=== PATIENT | male | born 1940 | race Caucasian/White ===

== ENCOUNTER 2023-08-16 07:27 | Inpatient (IN) | payer MEDICARE, SELFPAY ==
[2023-08-16] VITALS (55 sets, daily range): BP systolic 72–149; BP diastolic 40–108; PULSE 62–160; RESP 19–42; TEMP 36.4–37.2; O2SAT 78–99; BMI 37.7
--- NOTE | ~2023-08-16 | XR_ITS ---
Portable chest x-ray Comparison: 08/16/2023 Clinical History: Intubation Findings: Endotracheal tube is present, tip just above the cesia. NG tube in satisfactory position. Probable small right pleural effusion with mild bibasilar pulmonary edema/atelectasis. Cardiomedias tinal silhouette is stable. Bones and soft tissues are unremarkable. Impression: Support tubes, as above. Consider mild retraction of ET tube. Small right pleural effusion with mild bibasilar pulmonary edema/atelectasis. Reviewed, dictated and finalized at location . NESS SUPPORT ADMINISTRATOR Impression: Support tubes, as above. Consider mild retraction of ET tube. Small right pleural effusion with mild bibasilar pulmonary edema/atelectasis.
--- NOTE | ~2023-08-16 | XR_ITS ---
EXAMINATION: XR chest ET placement, XR abdomen gastric tube insert DATE: 08/16/2023 19:18 INDICATION: Endotracheal tube placement and nasogastric tube placement. TECHNIQUE: 1. Frontal view of the chest was obtained. 2. AP view of the abdomen was obtained. COMPARISON: 08/16/2023 FINDINGS: Endotracheal tube tip 5.2 cm above the cesia. Nasogastric tube tip in the stomach with proximal side -port just at the level of the gastroesophageal junction. Opacities in the bilateral lower lung zones, right greater than left which could represent atelectasi s and/or pneumonia . No pneumothorax or definitive pleural effusion. Cardiomegaly. No dilated loops g as-filled bowel in the visualized abdomen. Excreted contrast in the bilateral kidneys related to an e arlier contrast-enhanced CT. IMPRESSION: 1. Endotracheal tube tip 5.2 cm above the cesia. Could consider advancement by 3 cm. 2. Nasogastric tube tip in the stomach with proximal side-port at the level of the gastroesophageal j unction. Consider advancement by [address] the proximal side-port below level of the gastroesopha geal junction. 3. Opacities in bilateral lower lung zones with appearance in the right lower lung zone on prior CT m ost consistent with pneumonia and on the left more consistent with atelectasis. 4. Cardiomegaly. Reviewed, dictated and finalized at location A. OLOGY SPECIALIST IMPRESSION: 1. Endotracheal tube tip 5.2 cm above the cesia. Could consider advancement by 3 cm. 2. Nasogastric tube tip in the stomach with proximal side-port at the level of the gastroesophageal junction. Consider advancement by [address] the proxim al side-port below level of the gastroesophageal junction. 3. Opacities in bilateral lower lung zones with appearance in the right lower l rosa zone on prior CT most consistent with pneumonia and on the left more consis tent with atelectasis. 4. Cardiomegaly.
--- NOTE | ~2023-08-16 | CT_ITS ---
EXAMINATION: CT abdomen pelvis w con DATE: 08/16/2023 12:41 INDICATION: Lower abdominal pain TECHNIQUE: Computed tomography (CT) of the abdomen and pelvis was performed with 100 CC Omnipaque 350 intravenous contrast. Automated exposure control and iterative reconstruction technique were employe d. Exam dose: 1510.00 mGy-cm total exam DLP. COMPARISON: None. FINDINGS: There is severe patchy right lower lobe consolidation. There is moderate discoid atelectasi s and/or scarring in the left lung base, left lower lobe. Cardiomegaly, coronary artery calcifications. No pericardial or pleural effusion. 2.7 cm concentrically calcified gallstone. There is mild thickening of the gallbladder wall which lenore ht be due to acute or chronic cholecystitis. No pericholecystic fluid or fat stranding is noted. No b ile duct or pancreatic duct dilatation is detected. The liver, spleen, pancreas, and adrenal glands are unremarkable. 3.5 cm exophytic cyst of the right kidney Several pinpoint nonobstructing right renal calculi. Up to approximately 6 nonobstructing left renal calculi are suggested, largest measuring 3-4 mm. There is a Schaffer catheter within the urinary bladder which is largely evacuated. There is approximate ly 4.8 x 5.7 mm calculus within the urinary bladder at the right aspect of the Schaffer catheter balloon . Multiple prostate calcifications, prostate enlargement. There is atherosclerotic calcification but normal caliber of the abdominal aorta. No intraperitoneal or retroperitoneal or pelvic mass lesion or adenopathy or ascites is detected. Mild colonic diverticulosis; no CT evidence of diverticulitis. No evidence of appendicitis. No bowel obstruction, bowel wall thickening, pneumatosis or intraperitoneal free air. Approximately 1.4 x 2.4 cm fat-containing umbilical hernia. Small fat-containing left inguinal hernia. Prominent thoracic and lumbar spondylolysis. Moderately prominent bilateral hip osteoarthritis. No suspicious osteolytic or osteoblastic lesions are noted. IMPRESSION: Prominent right lower lobe consolidation consistent with pneumonia Cardiomegaly Cholelithiasis Mild gallbladder wall thickening which may be due to chronic or acute cholecystitis; clinical correla tion advised. Consider gallbladder ultrasound if clinically appropriate 3.5 cm exophytic right renal cyst Bilateral nonobstructive nephrolithiasis Approximately 4.8 x 5.7 mm calculus within the urinary bladder Bladder is not optimally evaluated due to evacuation by Schaffer catheter Prostate enlargement and calcifications Mild colonic diverticulosis; no diverticulitis No evidence of appendicitis Reviewed, dictated and finalized at Location A. Reviewed, dictated and finalized at location B. WAY MAINTENANCE SUPERVISOR IMPRESSION: Prominent right lower lobe consolidation consistent with pneumonia Cardiomegaly Cholelithiasis Mild gallbladder wall thickening which may be due to chronic or acute cholecyst itis; clinical correlation advised. Consider gallbladder ultrasound if clinical ly appropriate 3.5 cm exophytic right renal cyst Bilateral nonobstructive nephrolithiasis Approximately 4.8 x 5.7 mm calculus within the urinary bladder Bladder is not optimally evaluated due to evacuation by Schaffer catheter Prostate enlargement and calcifications Mild colonic diverticulosis; no diverticulitis No evidence of appendicitis
--- NOTE | ~2023-08-16 | XR_ITS ---
Portable chest x-ray Comparison: None Clinical History: Cough Findings: Lungs are clear, without focal consolidation or pleural effusion. Cardiomediastinal silho uette is prominent. Bones and soft tissues are unremarkable. Impression: Clear lungs. Cardiomegaly. Reviewed, dictated and finalized at location . CTION MOLDING ENGINEER Impression: Clear lungs. Cardiomegaly.
--- NOTE | ~2023-08-16 | XR_ITS ---
Portable chest x-ray Comparison: 08/17/2023 Clinical History: Respiratory failure Findings: Endotracheal tube and NG tube are in satisfactory positions. Small small moderate right pl eural effusion is present. Left lung essentially clear. Cardiomediastinal silhouette is stable. Bone s and soft tissues are unremarkable. Impression: Small to small moderate right pleural effusion. Support tubes, as above. Reviewed, dictated and finalized at location M. RITY AGENT Impression: Small to small moderate right pleural effusion. Support tubes, as above.
--- NOTE | ~2023-08-16 | XR_ITS ---
Portable chest x-ray Comparison: 08/18/2023 Clinical History: Respiratory failure Findings: Endotracheal tube and NG tube are in satisfactory positions. [id number] right pleur al effusion present. Probable minimal pulmonary edema. Cardiomediastinal silhouette is stable. Bones and soft tissues are unremarkable. Impression: Support tubes, as above. [id number] right pleural effusion and minimal pulmonary edema. Reviewed, dictated and finalized at location . CTOR OF DATABASE MARKETING Impression: Support tubes, as above. [id number] right pleural effusion and minimal pulmonary edema.
--- NOTE | ~2023-08-16 | US_ITS ---
EXAMINATION: US abdomen limited DATE: 08/17/2023 15:54 INDICATION: Gallbladder wall thickening on CT from one day prior. TECHNIQUE: Multiple grayscale and Doppler ultrasound images of the abdomen were obtained. COMPARISON: CT dated 08/16/2023 FINDINGS: Visualized portion of the pancreatic body is normal. The pancreatic head and tail are obscured. Visua lized proximal aorta and inferior vena cava are normal. Liver has normal echogenicity and contour, wi th a smooth surface. No liver lesion identified. No intrahepatic biliary duct dilation suspected. Por martina venous flow was seen in the hepatopetal, normal direction and has normal Doppler waveform. There is a large shadowing gallstone within the otherwise normal-appearing gallbladder with no evident gall bladder wall thickening. Sonographic Aguirre sign was unable to be assessed due to patient mental stat us. The common bile duct measures 5 mm, which is normal. The right kidney measures 12.0 x 5.7 x 4.5 c m with normal contour and echogenicity. There is mild cortical thinning. 4.3 similar exophytic cyst a rising from the mid right kidney. IMPRESSION: 1. Cholelithiasis within an otherwise normal-appearing gallbladder. Reviewed, dictated and finalized at location A. GER GROCERY
--- NOTE | 2023-08-16 07:54 | ECG_ITS ---
Measurements Intervals [place] Rate: 152 P: NE: 0 QRS: -29 QRSD: 113 T: 93 QT: 286 QTc: 456 Interpretive Statements ATRIAL FIBRILLATION WITH RAPID VENTRICULAR RESPONSE WITH ABERRANT CONDUCTION OR VENTRICULAR PREMATURE COMPLEXES BORDERLINE LEFT AXIS DEVIATION [QRS AXIS < -20] MODERATE INTRAVENTRICULAR CONDUCTION DELAY [110+ ms QRS DURATION] NONSPECIFIC ST & T-WAVE ABNORMALITY ABNORMAL ECG NO PREVIOUS ECG AVAILABLE FOR COMPARISON Electronically Signed On 08-16-2023 8:45:23 NEWS OPERATIONS MANAGER by Kelton Ross M.D.
[2023-08-16] MEDS: dilTIAZem HCl INJ 25 MG/5 ML VIAL 10 MG IV PUSH ×2 (08:18→09:29)
[2023-08-16] MEDS: MORPHINE SULFATE (*CRX) 4 MG/ML INJ IV PUSH (08:20)
[2023-08-16] MEDS: SODIUM CHLORIDE 0.9% IV 1,000 ML 999 ML IV CONT (08:21)
[2023-08-16 08:49] LABS: Basophils Absolute Auto 0.1 K/mm3 (0.0-0.1); Basophils Percent Auto 0.6 % (0.2-1.2); Eosinophils Absolute Auto 1.7 K/mm3 (0-0.3); Eosinophils Percent Auto 10.2 % (0-4.4); Hematocrit 58.5 % (42.0-52.0); Hemoglobin 18.9 g/dL (14.0-18.0); Immature Granulocyte Absolute 0.06 K/mm3 (0.00-0.031); Immature Granulocyte Percent A 0.4 % (0-0.5); Immature Platelet Fraction Pct 7.2 % (0.9-11.2); Lymphocytes Absolute Auto 0.44 K/mm3 (0.9-3.2); Lymphocytes Percent Auto 2.7 % (18.3-44.2); Mean Corpuscular HGB Conc 32.3 g/dl (32-36); Mean Corpuscular Hemoglobin 31.6 pg (26-34); Mean Corpuscular Volume 97.7 fl (80-100); Mean Platelet Volume 10.5 fl (7.4-10.4); Monocytes Absolute Auto 0.5 K/mm3 (0.1-0.6); Monocytes Percent Auto 3.1 % (2.6-8.5); Neutrophils Absolute Auto 13.6 K/mm3 (1.3-6.7); Platelet Count Result 128 k/mm3 (150-375); Red Blood Count 5.99 M/mm3 (4.6-6.20); White Blood Count 16.4 K/mm3 (4.5-10.0)
[2023-08-16] MEDS: dilTIAZem 100 MG/100 ML 100 MG/100 ML BAG IV CONT (09:01)
--- NOTE | 2023-08-16 09:07 | PC.NURSE ---
Cardizem drip initiated. Pt resting wtih shallow, tachy resp. states a liliya ago pt in hospital in ICU on ventilator for Urosepsis. Since that time pt has required a parson.
[2023-08-16 09:13] LABS: Lactic Acid Reflex 4.9 mmol/L (0.7-2.0)
[2023-08-16 09:22] LABS: INR 1.9; Partial Thromboplastin Time 31.6 SECONDS (22.3-36.8); Prothrombin Time 22.5 Seconds (11.1-14.7)
[2023-08-16 09:42] LABS: Influenza A QL RT-PCR Negative (Negative); Influenza B QL RT-PCR Negative (Negative); RSV RNA, RT-PCR Negative (Negative); SARS-CoV-2 RNA PCR Negative (Negative)
--- NOTE | 2023-08-16 10:27 | PC.NURSE ---
late entry- 0900- Pt lung sounds course in all reyez. Loose congested cough.
[2023-08-16 10:50] LABS: Bacteria Urine 4+ /hpf; Need Manual Microscopic Reviewed; RBC Urine >100 /hpf (0-2); Squamous Epithelial Cell Urine None seen /hpf (Few); WBC Urine >100 /hpf
[2023-08-16 10:51] LABS: Appearance Urine Turbid (Clear); Bilirubin Urine 1+ (Negative); Blood Urine 3+ (Negative); Color Urine Orange (Yellow); Glucose Urine UA 3+ mg/dL (Negative); Ketones Urine Trace mg/dL (Negative); Leukocyte Esterase Ur 2+ LEU/UL (Negative); Nitrate Urine Negative (Negative); Protein Urine 1+ mg/dL (Negative); Specific Grav Ur 1.018 (1.001-1.035)
[2023-08-16 10:53] LABS: Add Urine Microscopic? YES
--- NOTE | 2023-08-16 10:57 | PC.NURSE ---
CMP drawn sent to lab. Pt more alert, conversing short sentences.
[2023-08-16 11:35] LABS: Alanine Aminotransferase 43 U/L (6-50); Albumin Level 3.1 g/dL (3.5-5.1); Alkaline Phosphatase 50 U/L (38-126); Anion Gap 13 mmol/L (8-16); Aspartate Amino Transferase 27 U/L (17-59); Bilirubin,Total 1.6 mg/dL (0.2-1.3); Blood Urea Nitrogen 16 mg/dL (9-20); CRP 3.4 mg/dL (<1.0); Calcium 8.5 mg/dL (8.4-10.2); Carbon Dioxide 19 mmol/L (22-30); Chloride 108 mmol/L (98-107); Estimated CRCL calculation 59 ml/min; Estimated Glomerular Filt Rate > 60; Glucose 130 mg/dL (65-110); Potassium 3.9 mmol/L (3.4-5.0); Sodium 140 mmol/L (137-145)
[2023-08-16 11:44] LABS: Reflex Lactic Acid Yes or No Add Lactic
--- NOTE | 2023-08-16 11:45 | PC.NURSE ---
Pt remains congested. Non productive loose cough with audible wheezes. Dr. Fletcher informed
--- NOTE | 2023-08-16 12:37 | PC.NURSE ---
RN & bottling line operator unable to obtain lab orders. Phlebotomy called for assistance
--- NOTE | 2023-08-16 12:43 | PC.NURSE ---
Pt repositioned for comfort. Pt alert able to converse, able to request needs. remains at bedside
--- NOTE | 2023-08-16 12:56 | PC.NURSE ---
Pts at nurses station stating she thinks he is having a reaction from CT scan. RN assessed pt lower extremities to be mottled from groin to feet. Dr. Fletcher informed.
--- NOTE | 2023-08-16 13:01 | ED.GENADULT ---
HPI - General Adult General Chief complaint: Urogenital-Male Stated complaint: not feeling well Time Seen by Provider: 08/16/23 07:38 History of Present Illness HPI narrative: Patient is an 82-year-old male who presents ER with abdominal pain and fatigue /confusion. reports patient awoke today was more confused than typical. He has been having abdominal pain for several days on the right side. Has chronic indwelling Schaffer catheter. Upon arrival patient tachycardic to the 180s. Here. The AFib with RVR. He can answer some simple yes no questions and is oriented times 2-3. Related Data Allergies Allergy/AdvReac Type Severity Reaction Status Date / Time No Known Allergies Allergy Verified 08/16/23 08:17 Review of Systems Review of Systems: ROS unobtainable: Yes unobtainable due to medical condition PMFSH Past Medical History Medical History (Updated 08/16/23 @ 19:36 by Dc Fletcher MD) Benign prostatic hyperplasia Chronic anticoagulation Chronic atrial fibrillation Chronic indwelling Schaffer catheter Chronic kidney disease Hypertension Kidney stones Obstructive sleep apnea Intolerant to CPAP. Type 2 diabetes mellitus Urinary retention Surgical History Surgical History (Updated 08/16/23 @ 17:55 by Dariela Sawyer PA-C) History of cystoscopy History of tonsillectomy Family History Family History (Updated 08/16/23 @ 17:56 by Dariela Sawyer PA-C) Mother Cancer Father Acute myocardial infarction Social History Social History (Updated 08/16/23 @ 17:56 by Dariela Sawyer PA-C) Social History: Surrogate medical decision maker: Taniya Goyalson, spouse. Code status: Modified code. Medications, vasopressors, and intubation okay. No CPR. Smoking status: Never smoker Alcohol intake: never Alcohol use details: Occasional glass of wine. Substance use: never Substance use type: does not use Additional living arrangements comments: Lives with spouse in [place]. He has 1 daughter. 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 Spiritual care concerns: No Exam Narrative: GENERAL: Chronically ill-appearing, morbidly obese, and in no acute distress. HEAD: Normocephalic, atraumatic. EYES: PERRL and EOMI. ENT: Mucous membranes moist. NECK: Supple. CHEST: mild basilar crackles right-sided. No respiratory distress. HEART: irregular regular rate and rhythm that is tachycardic. Normal peripheral pulses. ABDOMEN: Soft, Right lower quadrant tenderness with guarding, nondistended, normal active bowel sounds. EXTREMITIES: Normal range of motion. +2 edema. SKIN: Warm, dry, no rash. NEURO: Alert and oriented x2-3. PSYCH: Normal mood and affect. Course Course Emergency Course: patient has been aggressively resuscitated with fluid due to concerns for sepsis. Lung sounds worsening now has obvious pneumonia. It appears patient may have passed a kidney stone as there is now 1 in his bladder in urine appears infected. Broad-spectrum antibiotics ordered. Patient placed on BiPAP for comfort but is still tachypneic. After discussions with the hospitalist service and national account director patient will go to the ICU. reports patient would be okay with intubation but does not want to have chest compressions. Patient received diltiazem 20 mg IV as well as an IV drip of diltiazem to control heart rate. Vital Signs Vital signs: Vital Signs Temperature 98.8 F 08/16/23 07:35 Pulse Rate 149 H 08/16/23 07:35 Respiratory Rate 30 H 08/16/23 07:35 Blood Pressure 142/95 H 08/16/23 07:35 Pulse Oximetry 97 08/16/23 07:35 Oxygen Delivery Room Air 08/16/23 07:35 Temperature 97.9 F 08/16/23 15:20 Pulse Rate 124 H 08/16/23 19:27 Respiratory Rate 30 H 08/16/23 19:27 Blood Pressure 77/58 L 08/16/23 16:00 Pulse Oximetry 91 08/16/23 19:28 Oxygen Delivery Mechanical Ventilation 08/16/23 19:28 Oxygen Flow Rate 3 02
[2023-08-16] MEDS: VANCOMYCIN 1,250 MG/NS 250 ML 1,250 MG/250 ML BAG 166.67 MG IVPB ×2 (13:52→17:15)
[2023-08-16 14:14] LABS: Lactic Acid 2.3 mmol/L (0.7-2.0)
--- NOTE | 2023-08-16 14:37 | PC.NURSE ---
Attempted to call report. RN unavailable will return call
[2023-08-16 14:42] LABS: Alveolar/Arterial O2 Gradient 269.7 mmHg; Base Excess ABG -9.9 mEq/l (+/-2.0); Carboxyhemoglobin 0.9 % THb (0-2.0); Fractional Inspired Oxygen 50 %; HCO3 ABG 13.5 mEq/l (22.0-26.0); Methemoglobin ABG 0.4 %THb (0-1.5); Oxygen Content ABG 22.2 %vol (16.0-22.0); Oxygen Saturation ABG 89.5 % (95.0-100.0); Oxyhemoglobin 89.1 % THb (90.0-100.0); PCO2 ABG 25.3 mmHg (35.0-45.0); PO2 ABG 58.3 mmHg (80.0-100.0); PO2 FiO2 Ratio Arterial Blood 1.17 %; Reduced Hemoglobin 9.6 %THb (0-5.0); Total Hemoglobin 17.8 g/dL (12.0-18.0); pH ABG 7.345 (7.350-7.450)
[2023-08-16 14:43] LABS: Device NON-INVASIVE VENT; Modified Allen's Test Pass; Site Drawn LEFT RADIAL
[2023-08-16 14:44] LABS: Non-Invasive Expiratory Pressure 8 CMH2O; Non-Invasive Inspiratory Pressure 14 CMH2O; Non-Invasive Vent Rate 16 /MIN
--- NOTE | 2023-08-16 14:55 | PC.NURSE ---
Report called to [facility]. Unable to transfer pt due to maintenance working in room 8
[2023-08-16 15:16] LABS: MRSA (PCR) NOT DETECTED (NOT DETECTE)
--- NOTE | 2023-08-16 15:20 | ADMGEN ---
This patient, Guillaume Hernandez, was admitted to Intensive Care Unit-8. Patient/family oriented to hospital policies and general routines including ID bracelet, bed and alarms, visiting hours, pain management, procedures, bathroom and other care routines, personal items, smoking policy, room service/diet, and visiting hours. Information on how to activate the Rapid Response Team has been discussed. Patient/Family are encouraged to report perceived risks to care and to ask questions if they do not understand what they are told or what they should do.
--- NOTE | 2023-08-16 15:25 | PC.NURSE ---
Dariela FINCH at bedside to evaluate patient upon admission to ICU.
--- NOTE | 2023-08-16 15:32 | PM.IMHP ---
H&P: HPI History of Present Illness Date/Time: 08/16/23 15:35 Chief Complaint: Lethargic. Narrative: This is an 82-year-old male with chronic atrial fibrillation on anticoagulation, hypertension, type 2 diabetes mellitus, untreated sleep apnea, benign prostatic hyperplasia, and chronic urinary retention with indwelling Schaffer catheter who presented to the emergency department via EMS from home for evaluation of lethargy. The patient provides limited history as he is currently on BiPAP; his provides the majority of the following. He has never been seen before this facility and gets most of his care at [facility]. He seemed to be doing okay over the weekend however mentioned to his several times that he had a mild stomach ache after eating on several occasions. She also noticed that his urine seemed to be more cloudy and darker than usual but that cleared up yesterday. To her knowledge he has not had fever, epigastric pain, back pain, bloating, belching, vomiting, or diarrhea. She denies that he has issues with dysphagia and has no concerns for aspiration. No reports of sick contacts. This morning he woke her from sleep at about 04:30. He did not speak but indicated to her that he was not feeling well and he nodded yes when asked if he needed to go to the hospital. In the ED: He was afebrile on arrival. Blood pressure was 142/95. He was in rapid atrial fibrillation on arrival with rates in the 130s to 140s and he was started on a diltiazem drip. Rates improved for brief period of time however the drip was discontinued due to the development of hypotension. SpO2 was as low as 78% on room air and he was placed on BiPAP due to work of breathing. Labs were significant for WBC count of 16.4, hemoglobin 18.9, platelet 128, INR 1.9, BUN 16, creatinine 1.10, lactic acid 4.9, CRP 3.4. Urine was positive for 2+ leukocyte esterase, greater than 100 RBC and WBC, and 4+ bacteria. He tested negative for influenza, RSV, and COVID. Chest x-ray showed cardiomegaly with clear lungs. CT of the abdomen and pelvis showed right lower lobe pneumonia, mild gallbladder wall thickening, bilateral nonobstructive nephrolithiasis, approximately 4.8 x 5.7 mm calculus within the urinary bladder. He received 3 L crystalloids with improvement in his lactic acid level. Blood and urine cultures were obtained. He was admitted to the ICU for further treatment and evaluation. Blood pressures have continued to decline despite cessation of the diltiazem drip. Blood pressure was 77/58 on arrival to the ICU and a central line was inserted and he has been started on vasopressors. Heart rate is started to slow down and rates are now in the 90s. He remains tachypneic in the upper 20s to low 30s but seems to be tolerating BiPAP much better than he was when I 1st saw him. Initial ABG showed a pH of 7.345, pCO2 25.3, PO2 58.3, HC03 13.5, reduce hemoglobin 9.6. Patient indicates that he is feeling a little bit better at this time. He denies fever, chest pain, pleuritic pain, palpitations, epigastric pain, abdominal pain, and low back pain. A couple of hours after arrival to the ICU he at increasing oxygen requirements and was increasingly tachypneic. He indicated that he was tired and after discussing intubation, he and his gave verbal consent. As the evening progressed his atrial fibrillation became more difficult to control and he was started on an amiodarone drip. He has had increasing vasopressor requirements and is currently on norepinephrine, vasopressin, and phenylephrine. Review of Systems Review of Systems: Difficult to obtain given the fact that he is on BiPAP though can not confidently say all other systems were reviewed and are negative except as documented in HPI. [facility] Past Medical History Medical History Benign prostatic hyperplasia Chronic anticoagulation Chronic atrial fibrillation Chronic indwelling Schaffer catheter Ch
--- NOTE | 2023-08-16 15:48 | PC.NURSE ---
late entry: 1437 Attempted to call report to ICU nurse unavailable will return call.
--- NOTE | 2023-08-16 15:49 | PC.NURSE ---
late entry: 0823 [place] ICU called for report. Report given. Per [facility] room 8 is not available due to maintenance working on lift. Cathy Page RN & Dr. Fletcher informed.
--- NOTE | 2023-08-16 15:53 | PC.NURSE ---
[facility] ICU informed prior to transfer to ICU pts stated she wanted to place pt as DNR. ICU staff aware and states they will help her with the documentation
--- NOTE | 2023-08-16 17:05 | P.PCNBED_ITS ---
Procedures Central Line Placement Right Femoral: Central Line Date: 08/16/23 Central Line Time: 16:30 Consent: I have discussed with the patient and/or surrogate, the non-emergent placement of a central venous catheter, including its clinical necessity/indication and associated potential risks and complications. The patient and/or surrogate understand(s) and acknowledge(s) the need to proceed with central venous catheter insertion as an important element of the patient's clinical management. Time Out Performed: Yes Patient Position: supine Patient placed on monitor/pulse ox: Yes Provider Prep: mask, sterile gown, sterile gloves, Max. sterile barrier precautions, cap and hand hygiene with conventional soap/water or alcohol based hand rub Central line prep: 2% Chlorhexidine scrub Local anesthesia used: lidocaine 1% Amount of anesthesia used (ml): 5 Sterile US Technique with sterile gel/sterile probe covers: Yes Central line lumen inserted: triple Citizen Of [place]: 7 Length (cm): 20 Post Procedure: sutured in place, good blood return, all ports aspirated, flushed, capped, transparent dressing, antimicrobial product and aseptic technique maintained throughout procedure Post procedure x-ray: other (n/a with femoral placement) Complications: none
[2023-08-16] MEDS: cefTRIAXone 2 GM/NS 100 ML 2 GM/100 ML BAG IVPB (17:21)
[2023-08-16] MEDS: AZITHROMYCIN 500 MG/NS 250 ML 500 MG/250 ML BAG 250 MG IVPB (17:23)
[2023-08-16] MEDS: NOREPINEPHRINE 8 MG/D5W 250 ML 8 MG/250 ML BAG 9.38 MG IV CONT (17:38)
--- NOTE | 2023-08-16 18:32 | PC.NURSE ---
Dariela Sawyer called to the patient's bedside. Respirations are increased to 40's and patient has more labored breathing. Respiratory at bedside.
--- NOTE | 2023-08-16 18:54 | PC.NURSE ---
Decision made to intubate patient. Respiratory and ac gerling pa at bedside.
--- NOTE | 2023-08-16 19:15 | P.PCNBED_ITS ---
Procedures Intubation Intubation Date: 08/16/23 Intubation Time: 18:45 Consent: The patient and his both gave verbal consent. A pre-procedural Time-Out was completed immediately before starting the procedure and confirmed: Patient Identification, Site, Procedure, Patient Position and the Availability of Requisite Equipment: Yes Sedative: etomidate Mg given: 30 Paralytic: succinylcholine Mg given: 100 Laryngoscope: fiber optic video scope Assist device used: fiber optic device ET tube size: 8 Tube secured depth (cm): 26 Tube secured location: lips Tube placement confirmation: visualized tube passing through cords, equal breath sounds bilaterally, no breath sounds over epigastrium and confirmation by capnometry Patient tolerated procedure: well Intubation complications: none Additional comments: Patient was preoxygenated on 100% FiO2 on BiPAP. Blood pressure was stable above 105 systolic. Etomidate and succinylcholine were given in rapid sequence for RSI. 8.0 ET tube was passed quickly, atraumatically, and on 1st attempt using glide scope, size 4. The tube was visualized passing through the cords. There was positive CO2 colorimetric change with misting noted in the tube. Lung sounds were auscultated bilaterally and there were absent breath sounds over the epigastrium. Dark, dried blood was noted in the oropharynx. Bloody frothy with a few clots were suctioned in line. Overall the patient tolerated the procedure well. He remained hemodynamically stable throughout. Postprocedure chest x-ray showed the ET tube approximately 5 cm above the cesia. Vent settings and sedation orders were obtained from the utility operator yarn.
[2023-08-16 19:21] LABS: Glucose Point of Care 191 mg/dl (65-105)
[2023-08-16 19:26] LABS: Hematocrit 53.4 % (42.0-52.0); Hemoglobin 16.4 g/dL (14.0-18.0); Mean Corpuscular HGB Conc 30.7 g/dl (32-36); Mean Corpuscular Hemoglobin 31.7 pg (26-34); Mean Corpuscular Volume 103.1 fl (80-100); Platelet Count Result 167 k/mm3 (150-375); Red Blood Count 5.18 M/mm3 (4.6-6.20); Red Cell Distribution Width 14.5 % (11.5-14.5); White Blood Count 8.5 K/mm3 (4.5-10.0)
[2023-08-16] MEDS: SUCCINYLCHOLINE CHLORIDE 20 MG/ML 10 ML VIAL 100 MG IV PUSH (19:26)
[2023-08-16] MEDS: ETOMIDATE 20 MG/10 ML AMPUL IV PUSH (19:26)
[2023-08-16] MEDS: FENTANYL 2,500MCG/NS250ML(*CRX 2,500 MCG/250 ML BAG 10 MCG IV CONT (19:27)
[2023-08-16] MEDS: MIDAZOLAM 100MG/NS 100ML(*CRX) 100 MG/100 ML BAG IV CONT (19:29)
[2023-08-16 19:37] LABS: Anion Gap 17 mmol/L (8-16); Blood Urea Nitrogen 20 mg/dL (9-20); Calcium 7.9 mg/dL (8.4-10.2); Carbon Dioxide 13 mmol/L (22-30); Chloride 108 mmol/L (98-107); Estimated CRCL calculation 35 ml/min; Estimated Glomerular Filt Rate 34; Glucose 209 mg/dL (65-110); Magnesium 1.3 mg/dL (1.6-2.3); Potassium 4.2 mmol/L (3.4-5.0); Sodium 138 mmol/L (137-145)
[2023-08-16 19:41] LABS: Beta-Hydroxybutyrate/Acetoacetate 0.18 mmol/L (0.02-0.27); Lactic Acid Reflex 10.1 mmol/L (0.7-2.0)
[2023-08-16] MEDS: VASOPRESSIN INJ 100 UNITS in DEXTROSE 5% 95 ML IV CONT (19:49)
[2023-08-16 19:52] LABS: Troponin I 0.075 ng/mL (0.000-0.034)
[2023-08-16 20:09] LABS: Alveolar/Arterial O2 Gradient 598.6 mmHg; Base Excess ABG -15.2 mEq/l (+/-2.0); Carboxyhemoglobin 0.1 % THb (0-2.0); Fractional Inspired Oxygen 100 %; HCO3 ABG 14.2 mEq/l (22.0-26.0); Methemoglobin ABG 0.5 %THb (0-1.5); Oxyhemoglobin 88.5 % THb (90.0-100.0); PCO2 ABG 45.9 mmHg (35.0-45.0); PO2 ABG 68.5 mmHg (80.0-100.0); PO2 FiO2 Ratio Arterial Blood 0.69 %; Reduced Hemoglobin 10.9 %THb (0-5.0); Total Hemoglobin 17.7 g/dL (12.0-18.0)
[2023-08-16 20:09] LABS: Procalcitonin 27.1 ng/mL
[2023-08-16 20:12] LABS: Oxygen Saturation ABG 86.8 % (95.0-100.0); pH ABG 7.108 (7.350-7.450)
[2023-08-16 20:13] LABS: Arterial Blood Gas PEEP 8 cmH2O; Arterial Blood Gas Tidal Volume 450 ml; Arterial Blood Gas Vent Mode CMV; Arterial Blood Gas Ventilator rate 20 /MIN; Device VENTILATOR; Modified Allen's Test Pass; Site Drawn RIGHT RADIAL
[2023-08-16] MEDS: ALBUMIN HUMAN 25% 25 GM/100 ML 100 ML IVPB (20:27)
[2023-08-16] MEDS: SODIUM BICARBONATE 8.4% 50 MEQ/50 ML SYRINGE 100 MEQ IV PUSH (20:27)
[2023-08-16] MEDS: AMIODARONE 150 MG/D5W 100 ML 150 MG/100 ML BAG 600 MG IV CONT (20:30)
[2023-08-16] MEDS: AMIODARONE 360 MG/D5W 200 ML 360 MG/200 ML BAG 33.33 MG IV CONT (20:31)
[2023-08-16] MEDS: LACTATED RINGERS 1,000 ML 999 ML IV CONT (20:35)
[2023-08-16] MEDS: CEFEPIME 2 GM/NS 50 ML 2 GM/50 ML BAG IVPB (20:45)
[2023-08-16 20:52] LABS: Free T4 Free Thyroxine Reflex 1.47 ng/dL (0.78-2.19)
[2023-08-16] MEDS: MAGNESIUM SULF 2 GM/WATER 50ML 2 GM/50 ML BAG IVPB (20:53)
[2023-08-16] MEDS: SODIUM BICARBONATE 8.4% 150 MEQ in WATER, STERILE FOR INJECTION 950 ML 100 MEQ IV CONT (21:07)
[2023-08-16 21:36] LABS: Hemoglobin A1C 5.6 % (<5.7)
[2023-08-16 21:37] LABS: Total Triiodothyronine (T3) 0.42 NG/ML (0.97-1.69)
[2023-08-16] MEDS: metroNIDAZOLE 500 MG/ISO 100ML 500 MG/100 ML BAG 100 MG IVPB (21:37)
[2023-08-16] MEDS: CENTRAL LINE FLUSH 10 ML IV PUSH (21:38)
[2023-08-16] MEDS: MINERAL OIL/WHITE PETROLATUM OINTMENT 1 APPLIC EACH EYE (21:38)
[2023-08-16 23:08] LABS: NT Pro B Type Natriuretic Pept 14500 pg/mL (19.9-100)
[2023-08-16] MEDS: NOREPINEPHRINE 8 MG/D5W 250 ML 8 MG/250 ML BAG 56.25 MG IV CONT (23:08)
[2023-08-16] MEDS: EPINEPHrine INJ 4 MG in DEXTROSE 5% IN WATER 250 ML 3.81 MG IV CONT (23:13)
[2023-08-17] VITALS (105 sets, daily range): BP systolic 56–248; BP diastolic 28–231; PULSE 77–134; RESP 2–30; TEMP 36.5–39.5; O2SAT 90–100
--- NOTE | 2023-08-17 | ECHO_ITS ---
Patient Info Name: Guillaume Hernandez Age: 82 years : 1940 Gender: Male Ht: 69 in Wt: 253 lbs BSA: 2.41 m2 HR: 103 bpm BP: 100 / 70 mmHg Heart Rhythm: Atrial Fibrillation, Tachycardia Technical Quality: Poor Exam Date: 08/17/2023 11:21 AM Exam Location: Echo Lab Patient Status: Inpatient Admit Date: 08/16/2023 Staff Ordering Physician: Marcus Ponce MD Manager Environmental Health: Krupa Edouard RDCS Attending Provider: Elton Keys MD Exam Type: CA echo dop color flow w con Study Info Indications - shock Complete two-dimensional, color flow and Doppler transthoracic echocardiogram is performed with contrast to opacify the left ventricle and to improve the deliniation of the left ventricle endocardial borders. Contrast/Agitated Saline Contrast/Ag. Saline: Definity Amount: 4.00 ml Administered By: Krupa Edouard RDCS Existing IV Access: Yes IV Access Condition: patent with no signs of infiltration Summary 1. Technically difficult study with limited views. 2. Left ventricular chamber dimension is moderately enlarged. 3. Left ventricular systolic function is severely reduced, estimated at <15%. 4. There is mild tricuspid valve regurgitation. 5. Dilated inferior vena cava with >50% collapse upon inspiration consistent with elevated right atrial pressure, 15 mmHg. 6. There is small pericardial effusion. Left Ventricle Left ventricular chamber dimension is moderately enlarged. Left ventricular systolic function is severely reduced, estimated at <15%. There is no increased left ventricular wall thickness. Right Ventricle Right ventricular chamber dimension is not well visualized. Left Atria Left atrial chamber dimension is normal. Right Atria Right atrial chamber dimension is not well visualized. Aortic Valve The aortic valve is not well visualized. There is no aortic valve regurgitation. Pulmonic Valve The pulmonic valve is not well visualized. Mitral Valve There is no mitral valve regurgitation. Tricuspid Valve There is mild tricuspid valve regurgitation. Pericardium/Pleural There is small pericardial effusion. Inferior Vena Cava Dilated inferior vena cava with >50% collapse upon inspiration consistent with elevated right atrial pressure, 15 mmHg. Aorta The aortic root size at the sinus of Valsalva is normal. Left Ventricular Outflow Tract Name Value Normal LVOT 2D LVOT Diameter 2.04 cm LVOT Doppler LVOT Peak Gradient 0 mmHg LVOT Mean Gradient 0 mmHg LVOT VTI 3.04 cm LVOT VTI/AV VTI Ratio 0.12 LVOT Stroke Volume 9.94 ml LVOT CO 0.86 l/min LVOT CI 0.36 L/min/m2 Mitral Valve Name Value Normal MV Doppler MV Decel [place] 614.31 cm/s2 MV PHT
[2023-08-17 00:09] LABS: Glucose Point of Care 211 mg/dl (65-105)
[2023-08-17] MEDS: INSULIN ASPART (*BKC) 100 UNITS/ML SUB-Q ×4 (00:13→12:03)
[2023-08-17 01:57] LABS: Reflex Lactic Acid Yes or No Add Lactic
[2023-08-17] MEDS: ALBUMIN HUMAN 25% 25 GM/100 ML 100 ML IVPB ×3 (01:57→13:05)
[2023-08-17] MEDS: SODIUM BICARBONATE 8.4% 50 MEQ/50 ML SYRINGE 100 MEQ IV PUSH (02:03)
[2023-08-17] MEDS: AMIODARONE 360 MG/D5W 200 ML 360 MG/200 ML BAG 33.33 MG IV CONT ×5 (02:09→19:59)
[2023-08-17 02:18] LABS: Alveolar/Arterial O2 Gradient 569.4 mmHg; Carboxyhemoglobin 0.4 % THb (0-2.0); Fractional Inspired Oxygen 100 %; HCO3 ABG 20.7 mEq/l (22.0-26.0); Methemoglobin ABG 0.4 %THb (0-1.5); Oxygen Saturation ABG 96.7 % (95.0-100.0); Oxyhemoglobin 96.4 % THb (90.0-100.0); PCO2 ABG 44.8 mmHg (35.0-45.0); PO2 ABG 98.8 mmHg (80.0-100.0); PO2 FiO2 Ratio Arterial Blood 0.99 %; Reduced Hemoglobin 2.8 %THb (0-5.0); Total Hemoglobin 16.2 g/dL (12.0-18.0)
[2023-08-17 02:20] LABS: Device VENTILATOR; Modified Allen's Test Pass; Site Drawn RIGHT RADIAL; pH ABG 7.282 (7.350-7.450)
[2023-08-17 02:21] LABS: Arterial Blood Gas PEEP 8 cmH2O; Arterial Blood Gas Tidal Volume 450 ml; Arterial Blood Gas Vent Mode CMV; Arterial Blood Gas Ventilator rate 24 /MIN
[2023-08-17] MEDS: NOREPINEPHRINE 8 MG/D5W 250 ML 8 MG/250 ML BAG 56.25 MG IV CONT ×4 (03:36→18:03)
[2023-08-17 05:07] LABS: Hematocrit 46.9 % (42.0-52.0); Hemoglobin 14.6 g/dL (14.0-18.0); Mean Corpuscular HGB Conc 31.1 g/dl (32-36); Mean Corpuscular Hemoglobin 31.9 pg (26-34); Mean Corpuscular Volume 102.6 fl (80-100); Mean Platelet Volume 10.7 fl (7.4-10.4); Platelet Count Result 130 k/mm3 (150-375); Red Blood Count 4.57 M/mm3 (4.6-6.20); Red Cell Distribution Width 14.6 % (11.5-14.5); White Blood Count 13.3 K/mm3 (4.5-10.0)
[2023-08-17] MEDS: metroNIDAZOLE 500 MG/ISO 100ML 500 MG/100 ML BAG 100 MG IVPB ×3 (05:10→20:21)
[2023-08-17] MEDS: CENTRAL LINE FLUSH 10 ML IV PUSH ×3 (05:11→20:21)
[2023-08-17 05:19] LABS: Alanine Aminotransferase 60 U/L (6-50); Alkaline Phosphatase 26 U/L (38-126); Anion Gap 19 mmol/L (8-16); Aspartate Amino Transferase 34 U/L (17-59); Bilirubin,Total 0.9 mg/dL (0.2-1.3); Blood Urea Nitrogen 26 mg/dL (9-20); Calcium 7.3 mg/dL (8.4-10.2); Carbon Dioxide 18 mmol/L (22-30); Chloride 97 mmol/L (98-107); Estimated CRCL calculation 29 ml/min; Estimated Glomerular Filt Rate 27; Glucose 413 mg/dL (65-110); Magnesium 1.8 mg/dL (1.6-2.3); Potassium 3.5 mmol/L (3.4-5.0); Sodium 134 mmol/L (137-145)
[2023-08-17 05:20] LABS: Lactic Acid 9.5 mmol/L (0.7-2.0)
[2023-08-17 05:30] LABS: Glucose Point of Care 250 mg/dl (65-105)
[2023-08-17 05:38] LABS: Alveolar/Arterial O2 Gradient 580.5 mmHg; Base Excess ABG -8.6 mEq/l (+/-2.0); Carboxyhemoglobin 0.2 % THb (0-2.0); Fractional Inspired Oxygen 100 %; HCO3 ABG 17.7 mEq/l (22.0-26.0); Methemoglobin ABG 0.3 %THb (0-1.5); Oxygen Content ABG 21.5 %vol (16.0-22.0); Oxygen Saturation ABG 96.2 % (95.0-100.0); PCO2 ABG 39.4 mmHg (35.0-45.0); PO2 ABG 93.1 mmHg (80.0-100.0); PO2 FiO2 Ratio Arterial Blood 0.93 %; Reduced Hemoglobin 3.5 %THb (0-5.0); Total Hemoglobin 15.9 g/dL (12.0-18.0)
[2023-08-17 05:40] LABS: Arterial Blood Gas PEEP 8 cmH2O; Arterial Blood Gas Tidal Volume 450 ml; Arterial Blood Gas Vent Mode CMV; Arterial Blood Gas Ventilator rate 24 /MIN; Device VENTILATOR; Modified Allen's Test Pass; Site Drawn RIGHT RADIAL
[2023-08-17] MEDS: SODIUM BICARBONATE 8.4% 150 MEQ in WATER, STERILE FOR INJECTION 950 ML 100 MEQ IV CONT (07:52)
[2023-08-17] MEDS: CEFEPIME 2 GM/NS 50 ML 2 GM/50 ML BAG IVPB (08:11)
[2023-08-17] MEDS: EPINEPHrine INJ 4 MG in DEXTROSE 5% IN WATER 250 ML 26.67 MG IV CONT ×2 (08:16→18:50)
[2023-08-17] MEDS: AZITHROMYCIN 500 MG/NS 250 ML 500 MG/250 ML BAG 250 MG IVPB (08:18)
[2023-08-17] MEDS: MINERAL OIL/WHITE PETROLATUM OINTMENT 1 APPLIC EACH EYE ×2 (08:19→20:17)
[2023-08-17 08:50] LABS: Glucose Point of Care 251 mg/dl (65-105)
[2023-08-17] MEDS: ENOXAPARIN 30 MG/0.3 ML SYRINGE SUB-Q (09:14)
[2023-08-17] MEDS: PANTOPRAZOLE SODIUM IV 40 MG VIAL IV PUSH ×2 (09:14→20:17)
[2023-08-17] MEDS: DOXYCYCLINE 100 MG/NS 100 ML 100 MG/100 ML BAG IVPB ×2 (09:14→20:21)
[2023-08-17] MEDS: SODIUM BICARBONATE TAB 650 MG TABLET FEED TUBE ×3 (09:14→16:20)
[2023-08-17] MEDS: AMIODARONE 150 MG/D5W 100 ML 150 MG/100 ML BAG 600 MG IV CONT (09:15)
[2023-08-17] MEDS: INSULIN GLARGINE (*BKC) 100 UNITS/ML 15 UNITS SUB-Q ×2 (09:16→20:55)
[2023-08-17] MEDS: PERFLUTREN LIPID MICROSPHERES 1.5 ML VIAL DILUTED TO 10 ML TOTAL VOLUME IV PUSH (11:05)
--- NOTE | 2023-08-17 11:36 | WPDCNINT ---
Assessment and Plan Assessment and plan (1) Septic shock: Code(s): A41.9 - Sepsis, unspecified organism; R65.21 - Severe sepsis with septic shock Status: Acute Assessment and Plan: Septic shock secondary to urinary tract infection and pneumonia. Another possibility is cholecystitis CT abdomen pelvis as above Ultrasound right upper quadrant abdomen pending Urine culture sputum cultures pending Blood cultures growing Gram-positive cocci in chains Patient has received significant amount IV fluids and patient is developing volume overload. Will hold further IV fluids Obtain echocardiogram Continue Levophed vasopressin epinephrine and [place]-Synephrine Continue 25% albumin for now Start stress dose hydrocortisone Bicarb for metabolic acidosis Changes through azithromycin to doxycycline, continue cefepime but decrease dose, metronidazole, and vancomycin. (2) Atrial fibrillation with rapid ventricular response: Code(s): I48.91 - Unspecified atrial fibrillation Status: Acute Assessment and Plan: Patient is in chronic atrial fibrillation, reportedly failed cardioversion as an outpatient. He is on long-term anticoagulation. Diltiazem drip initiated on arrival to the ED but discontinued due to hypotension. Currently on an amiodarone drip. Hold anticoagulation due to bloody suction from ETT and Dr. David output from NG (3) Metabolic acidosis: Code(s): E87.20 - Acidosis, unspecified Status: Acute Assessment and Plan: Secondary to a combination of lactic acidosis from sepsis in addition to acidosis from renal failure (kidney function was worse on repeat labs this evening). Per tube bicarb ordered (4) Acute respiratory failure: Code(s): J96.00 - Acute respiratory failure, unspecified whether with hypoxia or hypercapnia Status: Acute Assessment and Plan: Presumably due to pneumonia. May be a bit volume overloaded from IV fluids given earlier. PE unlikely as he is on anticoagulation. Failed BiPAP and now intubated ABG vent settings and chest x-ray reviewed Wean FiO2 Increase PEEP to 10 (5) Pneumonia: Code(s): J18.9 - Pneumonia, unspecified organism Status: Acute Assessment and Plan: CT of the abdomen/pelvis showed severe patchy right lower lobe consolidation consistent with pneumonia. Pending Legionella and pneumococcal antigens as well as mycoplasma IgM. Continue bronchodilators. (6) Urinary tract infection: Code(s): N39.0 - Urinary tract infection, site not specified Status: Acute Assessment and Plan: See above (7) Bladder calculus: Code(s): N21.0 - Calculus in bladder Status: Acute Assessment and Plan: CT scan showed a likely recently passed stone measuring 4.8 x 5.7 mm in the bladder and bilateral nonobstructing kidney stones. (8) Bilateral nephrolithiasis: Code(s): N20.0 - Calculus of kidney Status: Acute Assessment and Plan: See above (9) Type 2 diabetes mellitus: Code(s): E11.9 - Type 2 diabetes mellitus without complications Status: Acute Assessment and Plan: reports that his diabetes is well controlled without complications (no retinopathy or neuropathy). Continue sliding scale with changed to q.4 hours and high. Add Lantus May need insulin infusion A1c 5.6 (10) Chronic indwelling Schaffer catheter: Code(s): Z97.8 - Presence of other specified devices Status: Acute Assessment and Plan: Schaffer catheter was exchanged on admission 08/16/2023. 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
[2023-08-17 11:42] LABS: Glucose Point of Care 236 mg/dl (65-105)
--- NOTE | 2023-08-17 12:57 | IVDEFINITY ---
Prior to administration of IV Definity the patient was educated on the risks and benefits of the imaging enhancing agent including potential adverse side effects. The patient verbalized understanding. Allergies were verified. No exclusion criteria were identified and at least one of the following inclusion criteria were met: 1) physician request, 2) patient technically difficult to image (per the [place] [employer] guidelines of two or more segments not discernable within the apical view), or 3) questionable left ventricular function. ?
[2023-08-17] MEDS: HYDROCORTISONE SODIUM SUCCINATE 100 MG/2 ML VIAL IV PUSH ×2 (13:04→20:17)
[2023-08-17 13:22] LABS: Vancomycin Trough 13.6 ug/mL (10.0-20.0)
[2023-08-17] MEDS: VANCOMYCIN 1,500 MG/NS 500 ML 1,500 MG/500 ML BAG 250 MG IVPB (14:05)
[2023-08-17 14:11] LABS: Hematocrit 43.7 % (42.0-52.0); Hemoglobin 13.5 g/dL (14.0-18.0); Mean Corpuscular HGB Conc 30.9 g/dl (32-36); Mean Corpuscular Hemoglobin 31.5 pg (26-34); Mean Corpuscular Volume 101.9 fl (80-100); Mean Platelet Volume 11.1 fl (7.4-10.4); Platelet Count Result 114 k/mm3 (150-375); Red Blood Count 4.29 M/mm3 (4.6-6.20); Red Cell Distribution Width 14.6 % (11.5-14.5); White Blood Count 15.9 K/mm3 (4.5-10.0)
[2023-08-17 14:16] LABS: Anion Gap 16 mmol/L (8-16); Blood Urea Nitrogen 31 mg/dL (9-20); Calcium 7.3 mg/dL (8.4-10.2); Carbon Dioxide 23 mmol/L (22-30); Chloride 93 mmol/L (98-107); Estimated CRCL calculation 24 ml/min; Estimated Glomerular Filt Rate 22; Glucose 350 mg/dL (65-110); Magnesium 1.7 mg/dL (1.6-2.3); Sodium 132 mmol/L (137-145)
[2023-08-17 14:19] LABS: Potassium 3.6 mmol/L (3.4-5.0)
[2023-08-17] MEDS: MAGNESIUM SULF 2 GM/WATER 50ML 2 GM/50 ML BAG IVPB (15:11)
[2023-08-17] MEDS: POTASSIUM CHLORIDE 20 MEQ PACKET (FOR LIQUID) 40 MEQ FEED TUBE (15:12)
--- NOTE | 2023-08-17 15:27 | PM.IMPN ---
Progress Note: A&P Assessment and Plan (1) Septic shock: Code(s): A41.9 - Sepsis, unspecified organism; R65.21 - Severe sepsis with septic shock Status: Acute Assessment and Plan: Septic shock secondary to urinary tract infection and pneumonia. Ultrasound right upper quadrant abdomen pending Urine culture sputum cultures pending Blood cultures growing Gram-positive cocci in chains Will hold further IV fluids Obtain echocardiogram Levophed vasopressin epinephrine and [place]-Synephrine Continue 25% albumin for now Stress dose hydrocortisone Bicarb for metabolic acidosis Changes through azithromycin to doxycycline, continue cefepime but decrease dose, metronidazole, and vancomycin. (2) Atrial fibrillation with rapid ventricular response: Code(s): I48.91 - Unspecified atrial fibrillation Status: Acute Assessment and Plan: Patient is in chronic atrial fibrillation, reportedly failed cardioversion as an outpatient. He is on long-term anticoagulation. Diltiazem drip initiated on arrival to the ED but discontinued due to hypotension. Currently on an amiodarone drip. Hold anticoagulation due to bloody suction from ETT and Dr. David output from NG (3) Metabolic acidosis: Code(s): E87.20 - Acidosis, unspecified Status: Acute Assessment and Plan: Secondary to a combination of lactic acidosis from sepsis in addition to acidosis from renal failure (kidney function was worse on repeat labs this evening). Per tube bicarb ordered (4) Acute respiratory failure: Code(s): J96.00 - Acute respiratory failure, unspecified whether with hypoxia or hypercapnia Status: Acute Assessment and Plan: Presumably due to pneumonia; Probable fluid overload Failed BiPAP and now intubated (5) Pneumonia: Code(s): J18.9 - Pneumonia, unspecified organism Status: Acute Assessment and Plan: CT of the abdomen/pelvis showed severe patchy right lower lobe consolidation consistent with pneumonia. Bronchodilators and Abx (6) Urinary tract infection: Code(s): N39.0 - Urinary tract infection, site not specified Status: Acute Assessment and Plan: See above (7) Bladder calculus: Code(s): N21.0 - Calculus in bladder Status: Acute Assessment and Plan: CT scan showed a likely recently passed stone measuring 4.8 x 5.7 mm in the bladder and bilateral nonobstructing kidney stones. (8) Bilateral nephrolithiasis: Code(s): N20.0 - Calculus of kidney Status: Acute Assessment and Plan: See above (9) Type 2 diabetes mellitus: Code(s): E11.9 - Type 2 diabetes mellitus without complications Status: Acute Assessment and Plan: reports that his diabetes is well controlled without complications (no retinopathy or neuropathy). Continue sliding scale with changed to q.4 hours and high. Add Lantus May need insulin infusion A1c 5.6 (10) Chronic indwelling Schaffer catheter: Code(s): Z97.8 - Presence of other specified devices Status: Acute Assessment and Plan: Schaffer catheter was exchanged on admission 08/16/2023. 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 There is also stone in the bladder Continue bicarb for metabolic acidosis Hold further IV fluids as patient appears to have volume overloaded Continue vasopressors to maintain mean arterial pressure Monitor urine output lytes and creatinine (13) Upper GI bleed: Code(s): K92.2 - Gastrointestinal hemorrhage, unspecified Status: Acute
[2023-08-17] MEDS: INSULIN HUMAN REGULAR (*BKC) 100 UNITS/ML IV PUSH (15:45)
[2023-08-17 16:24] LABS: Glucose Point of Care 180 mg/dl (65-105)
[2023-08-17 20:09] LABS: Glucose Point of Care 170 mg/dl (65-105)
[2023-08-17] MEDS: CEFEPIME 1 GM/NS 50 ML 1 GM/50 ML BAG IVPB (20:21)
[2023-08-17] MEDS: ACETAMINOPHEN 325 MG TABLET 650 MG PO (20:55)
[2023-08-17] MEDS: NOREPINEPHRINE 8 MG/D5W 250 ML 8 MG/250 ML BAG 50.63 MG IV CONT (23:40)
[2023-08-18] VITALS (59 sets, daily range): BP systolic 71–248; BP diastolic 34–176; PULSE 67–135; RESP 18–37; TEMP 36.7–39.5; O2SAT 95–99
[2023-08-18 00:54] LABS: Glucose Point of Care 165 mg/dl (65-105)
[2023-08-18] MEDS: AMIODARONE 360 MG/D5W 200 ML 360 MG/200 ML BAG 33.33 MG IV CONT ×2 (02:00→07:40)
[2023-08-18] MEDS: NOREPINEPHRINE 8 MG/D5W 250 ML 8 MG/250 ML BAG 27 MG IV CONT (04:06)
[2023-08-18 04:26] LABS: Glucose Point of Care 174 mg/dl (65-105)
[2023-08-18 04:50] LABS: Alveolar/Arterial O2 Gradient 508.4 mmHg; Base Excess ABG -6.9 mEq/l (+/-2.0); Fractional Inspired Oxygen 90 %; Methemoglobin ABG 0.3 %THb (0-1.5); Oxygen Content ABG 20.7 %vol (16.0-22.0); Oxygen Saturation ABG 97.1 % (95.0-100.0); Oxyhemoglobin 96.7 % THb (90.0-100.0); PCO2 ABG 34.4 mmHg (35.0-45.0); PO2 FiO2 Ratio Arterial Blood 1.09 %; Total Hemoglobin 15.2 g/dL (12.0-18.0); pH ABG 7.336 (7.350-7.450)
[2023-08-18 04:51] LABS: Device VENTILATOR; Modified Allen's Test Pass; Site Drawn RIGHT RADIAL
[2023-08-18 04:52] LABS: Arterial Blood Gas PEEP 10 cmH2O; Arterial Blood Gas Tidal Volume 450 ml; Arterial Blood Gas Vent Mode CMV; Arterial Blood Gas Ventilator rate 24 /MIN
[2023-08-18] MEDS: HYDROCORTISONE SODIUM SUCCINATE 100 MG/2 ML VIAL IV PUSH ×3 (04:56→21:06)
[2023-08-18] MEDS: ACETAMINOPHEN 325 MG TABLET 650 MG PO ×4 (04:56→17:12)
[2023-08-18] MEDS: metroNIDAZOLE 500 MG/ISO 100ML 500 MG/100 ML BAG 100 MG IVPB (04:56)
[2023-08-18] MEDS: CENTRAL LINE FLUSH 10 ML IV PUSH ×3 (04:57→21:07)
[2023-08-18 05:26] LABS: Hematocrit 44.3 % (42.0-52.0); Hemoglobin 14.3 g/dL (14.0-18.0); Mean Corpuscular HGB Conc 32.3 g/dl (32-36); Mean Corpuscular Hemoglobin 32.3 pg (26-34); Mean Platelet Volume 11.3 fl (7.4-10.4); Platelet Count Result 101 k/mm3 (150-375); Red Blood Count 4.43 M/mm3 (4.6-6.20); Red Cell Distribution Width 14.5 % (11.5-14.5); White Blood Count 19.9 K/mm3 (4.5-10.0)
[2023-08-18 05:35] LABS: Alanine Aminotransferase 219 U/L (6-50); Albumin Level 3.3 g/dL (3.5-5.1); Alkaline Phosphatase 30 U/L (38-126); Anion Gap 18 mmol/L (8-16); Aspartate Amino Transferase 271 U/L (17-59); Bilirubin,Total 1.6 mg/dL (0.2-1.3); Blood Urea Nitrogen 39 mg/dL (9-20); Calcium 7.4 mg/dL (8.4-10.2); Carbon Dioxide 17 mmol/L (22-30); Chloride 95 mmol/L (98-107); Estimated CRCL calculation 20 ml/min; Estimated Glomerular Filt Rate 18; Glucose 161 mg/dL (65-110); Potassium 4.9 mmol/L (3.4-5.0); Sodium 130 mmol/L (137-145)
[2023-08-18 07:51] LABS: Glucose Point of Care 156 mg/dl (65-105)
[2023-08-18] MEDS: SODIUM BICARBONATE TAB 650 MG TABLET FEED TUBE ×3 (08:12→16:51)
[2023-08-18] MEDS: CALCIUM GLUC 2,000 MG/NS 100ML 2,000 MG/100 ML BAG 100 MG IVPB (08:12)
[2023-08-18] MEDS: MINERAL OIL/WHITE PETROLATUM OINTMENT 1 APPLIC EACH EYE ×2 (08:14→21:01)
[2023-08-18] MEDS: PANTOPRAZOLE SODIUM IV 40 MG VIAL IV PUSH ×2 (08:14→21:01)
[2023-08-18] MEDS: CEFEPIME 1 GM/NS 50 ML 1 GM/50 ML BAG IVPB ×2 (08:41→21:00)
[2023-08-18] MEDS: INSULIN GLARGINE (*BKC) 100 UNITS/ML 15 UNITS SUB-Q (08:42)
[2023-08-18] MEDS: DOXYCYCLINE 100 MG/NS 100 ML 100 MG/100 ML BAG IVPB (09:18)
--- NOTE | 2023-08-18 09:24 | WPDINTPN ---
Progress Note: A&P Assessment and Plan (1) Septic shock: Code(s): A41.9 - Sepsis, unspecified organism; R65.21 - Severe sepsis with septic shock Status: Acute Assessment and Plan: Septic shock secondary to urinary tract infection and pneumonia. Patient likely has cardiogenic component with shock Cultures growing Gram-positive cocci in 2 bottles Gallbladder ultrasound showed cholelithiasis without any cholecystitis findings CT abdomen pelvis as above Urine culture sputum cultures pending Blood cultures growing Gram-positive cocci in chains Patient has received significant amount IV fluids and patient has developed volume overload. further IV fluids are on hold Echocardiogram as below Continue Levophed vasopressin. Epinephrine and [place]-Synephrine have been weaned off Will discontinue further 25% albumin for now Continue stress dose hydrocortisone Continue bicarb for metabolic acidosis Continue doxycycline, cefepime, and vancomycin. (2) Atrial fibrillation with rapid ventricular response: Code(s): I48.91 - Unspecified atrial fibrillation Status: Acute Assessment and Plan: Patient is in chronic atrial fibrillation, reportedly failed cardioversion as an outpatient. He is on long-term anticoagulation. Diltiazem drip initiated on arrival to the ED but discontinued due to hypotension. Currently on an amiodarone drip. Will decrease the dose of 0.5. Hold anticoagulation due to bloody suction from ETT and Black output from NG (3) Metabolic acidosis: Code(s): E87.20 - Acidosis, unspecified Status: Acute Assessment and Plan: Secondary to a combination of lactic acidosis from sepsis in addition to acidosis from renal failure (kidney function was worse on repeat labs this evening). Per tube bicarb ordered (4) Acute respiratory failure: Code(s): J96.00 - Acute respiratory failure, unspecified whether with hypoxia or hypercapnia Status: Acute Assessment and Plan: Presumably due to pneumonia. May be a bit volume overloaded from IV fluids given earlier. PE unlikely as he is on anticoagulation. Failed BiPAP and now intubated ABG vent settings and chest x-ray reviewed FiO2 decreased to 70%. Peep increased to 12 (5) Pneumonia: Code(s): J18.9 - Pneumonia, unspecified organism Status: Acute Assessment and Plan: CT of the abdomen/pelvis showed severe patchy right lower lobe consolidation consistent with pneumonia. Pending Legionella and pneumococcal antigens as well as mycoplasma IgM. Continue bronchodilators. (6) Urinary tract infection: Code(s): N39.0 - Urinary tract infection, site not specified Status: Acute Assessment and Plan: See above (7) Bladder calculus: Code(s): N21.0 - Calculus in bladder Status: Acute Assessment and Plan: CT scan showed a likely recently passed stone measuring 4.8 x 5.7 mm in the bladder and bilateral nonobstructing kidney stones. (8) Bilateral nephrolithiasis: Code(s): N20.0 - Calculus of kidney Status: Acute Assessment and Plan: See above (9) Type 2 diabetes mellitus: Code(s): E11.9 - Type 2 diabetes mellitus without complications Status: Acute Assessment and Plan: reports that his diabetes is well controlled without complications (no retinopathy or neuropathy). Continue sliding scale with changed to q.4 hours and high. Continue lantus A1c 5.6 (10) Chronic indwelling Schaffer catheter: Code(s): Z97.8 - Presence of other specified devices Status: Acute Assessment and Plan: Schaffer catheter was exchanged on admission 08/16/2023. (11) Chronic anticoagulation: Code(s): Z79.01 - long-term (current) use of anticoagulants Status: Acute Assessment and Plan: Hold apixaban (12) MATT (acute kidney injury): Code(s): N17.9 - Acute kidney failure, unspecified Status: Ac
[2023-08-18] MEDS: NOREPINEPHRINE 8 MG/D5W 250 ML 8 MG/250 ML BAG 45 MG IV CONT (10:04)
--- NOTE | 2023-08-18 11:40 | PCFNICU ---
ICU Rounding Note: Pt current nutrition is NPO. Last recorded weight is 122 kg, up from 115 kg on admit. Bowel Motility: No BM reported. Labs Reviewed:Glu 161,BUN 39,Cr 3.4,GFR 18, NA 130 Meds Noted:Versed, Fentanyl, Vasopressin, Levophed. Skin: WNL Additional Notes: Patient remans on mechanical vent. Discussions in rounds regarding nutrition. Patient on high amounts of pressors at this time, no plans for nutrition today. Discussions regarding transfer to tertiary facility. Digital Proofing And Platemaker has discussed with and awaiting decisions regarding plan of care. Following daily in ICU rounds.
[2023-08-18 11:55] LABS: Glucose Point of Care 129 mg/dl (65-105)
--- NOTE | 2023-08-18 12:36 | P.CONNP_ITS ---
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 * follow repeat labs and UOP (2) Septic shock: Code(s): A41.9 - Sepsis, unspecified organism; R65.21 - Severe sepsis with septic shock Status: Acute Assessment and Plan: * presumably secondary to urinary tract infection and pneumonia although the possibility of cholecystitis exists as well * imaging to date noted * follow culture data * positive blood cultures noted * s/p aggressive IVF resuscitation -- now with volume overload * was on 4 vasopressors - weaned down to 2 * continue broad spectrum antibiotics (3) Acute respiratory failure: Code(s): J96.00 - Acute respiratory failure, unspecified whether with hypoxia or hypercapnia Status: Acute Assessment and Plan: * due to pneumonia and septic shock along with possible volume overload * intubated and on mechanical ventilation * ventilator weaning when more stable (4) Congestive heart failure: Code(s): I50.9 - Heart failure, unspecified Status: Acute Assessment and Plan: * Echo with EF <15%. * therapy for this issues llimited by septic shock * Cardiology consulted for further recommendations (5) Atrial fibrillation with rapid ventricular response: Code(s): I48.91 - Unspecified atrial fibrillation Status: Acute Assessment and Plan: * known history of chronic afib * on amiodarone gtt * off anticoagulation due to bloody suction from ETT and dark NG output (6) Metabolic acidosis: Code(s): E87.20 - Acidosis, unspecified Status: Acute Assessment and Plan: * due to lactic acidosis from sepsis in addition to acidosis from MATT/ARF * sodiuim bicarb per tube * follow CO2 levels (7) Pneumonia: Code(s): J18.9 - Pneumonia, unspecified organism Status: Acute Assessment and Plan: * CT of the abdomen/pelvis showed severe patchy right lower lobe consolidation consistent with pneumonia. * follow culture data * on antibiotics * continue bronchodilators (8) Urinary tract infection: Code(s): N39.0 - Urinary tract infection, site not specified Status: Acute Assessment and Plan: * admission UA suggestive * however, does have chronic parson catheter... 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 Unfortunately, even though he has been weaned down to 2 vasopressor therapy, he is still somew
--- NOTE | 2023-08-18 12:36 | PM.CNNEP ---
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 follow repeat labs and UOP (2) Septic shock: Code(s): A41.9 - Sepsis, unspecified organism; R65.21 - Severe sepsis with septic shock Status: Acute Assessment and Plan: presumably secondary to urinary tract infection and pneumonia although the possibility of cholecystitis exists as well imaging to date noted follow culture data positive blood cultures noted s/p aggressive IVF resuscitation -- now with volume overload was on 4 vasopressors - weaned down to 2 continue broad spectrum antibiotics (3) Acute respiratory failure: Code(s): J96.00 - Acute respiratory failure, unspecified whether with hypoxia or hypercapnia Status: Acute Assessment and Plan: due to pneumonia and septic shock along with possible volume overload intubated and on mechanical ventilation ventilator weaning when more stable (4) Congestive heart failure: Code(s): I50.9 - Heart failure, unspecified Status: Acute Assessment and Plan: Echo with EF <15%. therapy for this issues llimited by septic shock Cardiology consulted for further recommendations (5) Atrial fibrillation with rapid ventricular response: Code(s): I48.91 - Unspecified atrial fibrillation Status: Acute Assessment and Plan: known history of chronic afib on amiodarone gtt off anticoagulation due to bloody suction from ETT and dark NG output (6) Metabolic acidosis: Code(s): E87.20 - Acidosis, unspecified Status: Acute Assessment and Plan: due to lactic acidosis from sepsis in addition to acidosis from MATT/ARF sodiuim bicarb per tube follow CO2 levels (7) Pneumonia: Code(s): J18.9 - Pneumonia, unspecified organism Status: Acute Assessment and Plan: CT of the abdomen/pelvis showed severe patchy right lower lobe consolidation consistent with pneumonia. follow culture data on antibiotics continue bronchodilators (8) Urinary tract infection: Code(s): N39.0 - Urinary tract infection, site not specified Status: Acute Assessment and Plan: admission UA suggestive however, does have chronic parson catheter... 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 Unfortunately, even though he has been weaned down to 2 vasopressor therapy, he is still somewhat unstable for regular/conventional intermittent hemodialysis and I agree with Dr. Ponce that he would likely need/require continuous renal replacement therapy if dialysis therapy is to be initiated. I suppose a trial of intermittent hemodialysis could be tried but I highly doubt we would be successful in removing any fluid given his hemodynamic instability. If he is able to get off vasopressor therapy that might help with the possibility of intermittent he
[2023-08-18 13:36] LABS: Mycoplasma IgM Antibody Titer 32 U/mL (<770)
--- NOTE | 2023-08-18 14:03 | PM.CNCAR ---
Assessment and Plan Assessment and plan (1) Septic shock: Code(s): A41.9 - Sepsis, unspecified organism; R65.21 - Severe sepsis with septic shock Status: Acute Assessment and Plan: Initially requiring multiple pressors, but now only on Levophed. 4/4 blood culture bottles are growing Streptococcus pneumoniae. Being treated for pneumonia and UTI. Management as per the ICU team. (2) Atrial fibrillation with rapid ventricular response: Code(s): I48.91 - Unspecified atrial fibrillation Status: Acute Assessment and Plan: In setting of septic shock. Continue Amiodarone drip for now. Eliquis is currently on hold due to bloody suction from ETT and black output from NG tube. Resume Eliquis when appropriate. (3) Acute respiratory failure: Code(s): J96.00 - Acute respiratory failure, unspecified whether with hypoxia or hypercapnia Status: Acute Assessment and Plan: Intubated, on mechanical ventilation. Management as per ICU team. (4) Pneumonia: Code(s): J18.9 - Pneumonia, unspecified organism Status: Acute Assessment and Plan: On antibiotics as per ICU team. (5) Urinary tract infection: Code(s): N39.0 - Urinary tract infection, site not specified Status: Acute Assessment and Plan: On antibiotics as per ICU team. (6) Congestive heart failure: Code(s): I50.9 - Heart failure, unspecified Status: Acute Assessment and Plan: Known history of heart failure with reduced ejection fraction, last LVEF was 35-40%. LVEF this admission <15%. In setting of septic shock. Home heart failure GDMT is on hold due to pressor requirement. Will eventually restart GDMT when no longer requiring pressors. He is volume overloaded, however, his SCr of 3.4 will make it difficult to diurese. Can try IV Lasix as tolerated by hemodynamics. Family has decided that they do not want CRRT (if they did decide to do CRRT, he would need to be transferred to a tertiary center as we do not have CRRT capabilities here). (7) MATT (acute kidney injury): Code(s): N17.9 - Acute kidney failure, unspecified Status: Acute Assessment and Plan: SCr continues to rise, up to 3.4 now. Nephrology has been consulted. Plan Recommendations and plan discussed with Hospitalist. History of Present Illness History of Present Illness Consult date/time: 08/18/23 14:03 Requesting physician: Marcus Ponce MD Consult reason: congestive heart failure Reason For Visit: Sepsis/Pneumonia/UTI/Bladder Stone/Cholelithiasis Narrative: We are consulted for congestive heart failure. This is an 82 year old male with known heart failure with reduced ejection fraction, chronic persistent atrial fibrillation. His primary duco polisher is Dr. Camargo at [facility]. Patient is currently intubated, therefore, unable to obtain any history from the patient. History obtained from the medical chart, patient's medical team and the family at bedside. Patient initially presented to [facility] for lethargy. He was found to be hypoxic, in respiratory distress, in AFIB with RVR. WBC 16.4. Lactate of 4.9. UA concerning for UTI. CT showed right lower lobe pneumonia. Patient was intubated and ended up requiring multiple pressors for shock. Echocardiogram this admission shows moderate enlargement of LV, LVEF <15%, mild tricuspid regurgitation, small pericardial effusion. Review of Dr. Camargo's records show that his LVEF previously was 35-40%. Review of Systems Review of Systems: ROS unobtainable: Yes unobtainable due to endotracheal tube PMFSH Past Medical History Medical History Benign prostatic hyperplasia Chronic anticoagulation Chronic atrial fibrillation Chronic indwelling Schaffer catheter Chronic kidney disease Hypertension Kidney stones Obstructive sleep apnea Intolerant to CPAP. Type 2 diabetes mellitus Urinary retention Jatinder
[2023-08-18 15:16] LABS: Vancomycin Trough 22.3 ug/mL (10.0-20.0)
[2023-08-18 16:41] LABS: Glucose Point of Care 99 mg/dl (65-105)
[2023-08-18] MEDS: NOREPINEPHRINE 8 MG/D5W 250 ML 8 MG/250 ML BAG 41.25 MG IV CONT (16:51)
[2023-08-18] MEDS: VASOPRESSIN INJ 100 UNITS in DEXTROSE 5% 95 ML IV CONT (17:18)
--- NOTE | 2023-08-18 17:50 | P.PNIM_ITS ---
Progress Note: A&P Assessment and Plan (1) Septic shock: Code(s): A41.9 - Sepsis, unspecified organism; R65.21 - Severe sepsis with septic shock Status: Acute Assessment and Plan: Septic shock secondary to urinary tract infection and pneumonia. Ultrasound right upper quadrant abdomen pending Urine culture sputum cultures pending Blood cultures growing Gram-positive cocci in chains Will hold further IV fluids Obtain echocardiogram Levophed vasopressin epinephrine and Dallas-Synephrine Continue 25% albumin for now Stress dose hydrocortisone Bicarb for metabolic acidosis Changes through azithromycin to doxycycline, continue cefepime but decrease dose, metronidazole, and vancomycin. On Cefepime (2) Atrial fibrillation with rapid ventricular response: Code(s): I48.91 - Unspecified atrial fibrillation Status: Acute Assessment and Plan: Patient is in chronic atrial fibrillation, reportedly failed cardioversion as an outpatient. He is on long-term anticoagulation. Diltiazem drip initiated on arrival to the ED but discontinued due to hypotension. Currently on an amiodarone drip. Hold anticoagulation due to bloody suction from ETT and Dr. David output from NG (3) Metabolic acidosis: Code(s): E87.20 - Acidosis, unspecified Status: Acute Assessment and Plan: Secondary to a combination of lactic acidosis from sepsis in addition to acidosis from renal failure (kidney function was worse on repeat labs this evening). Per tube bicarb ordered (4) Acute respiratory failure: Code(s): J96.00 - Acute respiratory failure, unspecified whether with hypoxia or hypercapnia Status: Acute Assessment and Plan: Presumably due to pneumonia; Probable fluid overload Failed BiPAP and now intubated (5) Pneumonia: Code(s): J18.9 - Pneumonia, unspecified organism Status: Acute Assessment and Plan: CT of the abdomen/pelvis showed severe patchy right lower lobe consolidation consistent with pneumonia. Bronchodilators and Abx (6) Urinary tract infection: Code(s): N39.0 - Urinary tract infection, site not specified Status: Acute Assessment and Plan: See above (7) Bladder calculus: Code(s): N21.0 - Calculus in bladder Status: Acute Assessment and Plan: CT scan showed a likely recently passed stone measuring 4.8 x 5.7 mm in the bladder and bilateral nonobstructing kidney stones. (8) Bilateral nephrolithiasis: Code(s): N20.0 - Calculus of kidney Status: Acute Assessment and Plan: See above (9) Type 2 diabetes mellitus: Code(s): E11.9 - Type 2 diabetes mellitus without complications Status: Acute Assessment and Plan: reports that his diabetes is well controlled without complications (no retinopathy or neuropathy). Continue sliding scale with changed to q.4 hours and high. Add Lantus May need insulin infusion A1c 5.6 (10) Chronic indwelling Schaffer catheter: Code(s): Z97.8 - Presence of other specified devices Status: Acute Assessment and Plan: Schaffer catheter was exchanged on admission 08/16/2023. (11) Chronic anticoagulation: Code(s): Z79.01 - senior living (current) use of anticoagulants Status: Acute Assessment and Plan: Hold apixaban (12) MATT (acute kidney injury): Code(s): N17.9 - Acute kidney failure, unspecified Status: Acute Assessment and Plan: Base
[2023-08-18 20:28] LABS: Glucose Point of Care 139 mg/dl (65-105)
[2023-08-18] MEDS: FENTANYL 2,500MCG/NS250ML(*CRX 2,500 MCG/250 ML BAG IV CONT (23:23)
[2023-08-19] VITALS (25 sets, daily range): BP systolic 78–143; BP diastolic 52–121; PULSE 112–131; RESP 24–30; TEMP 37.3–39.6; O2SAT 93–97; BMI 40.4
[2023-08-19 00:17] LABS: Glucose Point of Care 135 mg/dl (65-105)
[2023-08-19] MEDS: NOREPINEPHRINE 8 MG/D5W 250 ML 8 MG/250 ML BAG 24.38 MG IV CONT (00:17)
[2023-08-19 05:20] LABS: Hematocrit 43.3 % (42.0-52.0); Hemoglobin 14.1 g/dL (14.0-18.0); Mean Corpuscular HGB Conc 32.6 g/dl (32-36); Mean Corpuscular Hemoglobin 31.7 pg (26-34); Mean Corpuscular Volume 97.3 fl (80-100); Mean Platelet Volume 11.2 fl (7.4-10.4); Platelet Count Result 73 k/mm3 (150-375); Red Blood Count 4.45 M/mm3 (4.6-6.20); Red Cell Distribution Width 14.7 % (11.5-14.5); White Blood Count 21.4 K/mm3 (4.5-10.0)
[2023-08-19] MEDS: CENTRAL LINE FLUSH 10 ML IV PUSH (05:29)
[2023-08-19] MEDS: HYDROCORTISONE SODIUM SUCCINATE 100 MG/2 ML VIAL IV PUSH (05:29)
[2023-08-19 05:34] LABS: Alanine Aminotransferase 464 U/L (6-50); Albumin Level 3.1 g/dL (3.5-5.1); Alkaline Phosphatase 63 U/L (38-126); Anion Gap 15 mmol/L (8-16); Aspartate Amino Transferase 441 U/L (17-59); Blood Urea Nitrogen 60 mg/dL (9-20); Calcium 7.6 mg/dL (8.4-10.2); Carbon Dioxide 20 mmol/L (22-30); Chloride 91 mmol/L (98-107); Estimated CRCL calculation 13 ml/min; Estimated Glomerular Filt Rate 10; Glucose 189 mg/dL (65-110); Potassium 4.9 mmol/L (3.4-5.0); Sodium 126 mmol/L (137-145)
[2023-08-19 06:01] LABS: Thyroid Stimulating Hormone 0.869 uIU/mL (0.465-4.680)
[2023-08-19 06:05] LABS: Alveolar/Arterial O2 Gradient 283.1 mmHg; Base Excess ABG -6.6 mEq/l (+/-2.0); Carboxyhemoglobin 0.2 % THb (0-2.0); Fractional Inspired Oxygen 60 %; HCO3 ABG 17.7 mEq/l (22.0-26.0); Methemoglobin ABG 0.5 %THb (0-1.5); Oxygen Content ABG 20.7 %vol (16.0-22.0); Oxygen Saturation ABG 97.9 % (95.0-100.0); PCO2 ABG 32.4 mmHg (35.0-45.0); PO2 ABG 109.1 mmHg (80.0-100.0); PO2 FiO2 Ratio Arterial Blood 1.82 %; Reduced Hemoglobin 2.3 %THb (0-5.0); Total Hemoglobin 15.1 g/dL (12.0-18.0); pH ABG 7.356 (7.350-7.450)
[2023-08-19 06:06] LABS: Arterial Blood Gas PEEP 12 cmH2O; Arterial Blood Gas Vent Mode CMV; Arterial Blood Gas Ventilator rate 24 /MIN; Device VENTILATOR; Modified Allen's Test Pass; Site Drawn LEFT RADIAL
[2023-08-19 06:07] LABS: Arterial Blood Gas Tidal Volume 450 ml
[2023-08-19] MEDS: ACETAMINOPHEN 325 MG TABLET 650 MG PO (06:25)
[2023-08-19] MEDS: AMIODARONE 360 MG/D5W 200 ML 360 MG/200 ML BAG 16.67 MG IV CONT (07:02)
[2023-08-19 07:17] LABS: Creatine Kinase 316 U/L (55-170)
[2023-08-19 08:01] LABS: Glucose Point of Care 180 mg/dl (65-105)
[2023-08-19] MEDS: PANTOPRAZOLE SODIUM IV 40 MG VIAL IV PUSH (08:39)
[2023-08-19] MEDS: MINERAL OIL/WHITE PETROLATUM OINTMENT 1 APPLIC EACH EYE (08:39)
[2023-08-19] MEDS: SODIUM BICARBONATE TAB 650 MG TABLET FEED TUBE (08:39)
[2023-08-19] MEDS: CEFEPIME 1 GM/NS 50 ML 1 GM/50 ML BAG IVPB (08:40)
[2023-08-19] MEDS: SODIUM CHLORIDE 1 GM TABLET FEED TUBE (08:42)
--- NOTE | 2023-08-19 09:49 | WPDINTPN ---
Progress Note: A&P Assessment and Plan (1) Septic shock: Code(s): A41.9 - Sepsis, unspecified organism; R65.21 - Severe sepsis with septic shock Status: Acute Assessment and Plan: Septic shock secondary to urinary tract infection and pneumococcal pneumonia. Patient likely has cardiogenic component with shock Blood culture growing strep pneumo x 2 Gallbladder ultrasound showed cholelithiasis without any cholecystitis findings CT abdomen pelvis as above Urine culture sputum cultures pending Blood cultures growing Gram-positive cocci in chains Patient has received significant amount IV fluids and patient has developed volume overload. further IV fluids are on hold Echocardiogram as below Continue Levophed vasopressin. Epinephrine and Dallas-Synephrine have been weaned off Off 25% albumin for now Continue stress dose hydrocortisone Continue bicarb for metabolic acidosis Continue cefepime. Discontinued doxycycline and vancomycin. (2) Atrial fibrillation with rapid ventricular response: Code(s): I48.91 - Unspecified atrial fibrillation Status: Acute Assessment and Plan: Patient is in chronic atrial fibrillation, reportedly failed cardioversion as an outpatient. He is on long-term anticoagulation. Diltiazem drip initiated on arrival to the ED but discontinued due to hypotension. Currently on an amiodarone drip which will be continued Hold anticoagulation due to bloody suction from ETT and Black output from NG (3) Metabolic acidosis: Code(s): E87.20 - Acidosis, unspecified Status: Acute Assessment and Plan: Secondary to a combination of lactic acidosis from sepsis in addition to acidosis from renal failure (kidney function was worse on repeat labs this evening). Per tube bicarb ordered (4) Acute respiratory failure: Code(s): J96.00 - Acute respiratory failure, unspecified whether with hypoxia or hypercapnia Status: Acute Assessment and Plan: Presumably due to pneumonia. May be a bit volume overloaded from IV fluids given earlier. PE unlikely as he is on anticoagulation. Failed BiPAP and now intubated ABG vent settings and chest x-ray reviewed FiO2 decreased to 60%. Peep increased to 12 (5) Pneumonia: Code(s): J18.9 - Pneumonia, unspecified organism Status: Acute Assessment and Plan: CT of the abdomen/pelvis showed severe patchy right lower lobe consolidation consistent with pneumonia. Blood culture positive for strep pneumo Negative legionella and pneumococcal antigens as well as mycoplasma IgM. Continue bronchodilators. (6) Urinary tract infection: Code(s): N39.0 - Urinary tract infection, site not specified Status: Acute Assessment and Plan: See above (7) Bladder calculus: Code(s): N21.0 - Calculus in bladder Status: Acute Assessment and Plan: CT scan showed a likely recently passed stone measuring 4.8 x 5.7 mm in the bladder and bilateral nonobstructing kidney stones. (8) Bilateral nephrolithiasis: Code(s): N20.0 - Calculus of kidney Status: Acute Assessment and Plan: See above (9) Type 2 diabetes mellitus: Code(s): E11.9 - Type 2 diabetes mellitus without complications Status: Acute Assessment and Plan: reports that his diabetes is well controlled without complications (no retinopathy or neuropathy). Continue sliding scale with changed to q.4 hours and high. Continue lantus A1c 5.6 (10) Chronic indwelling Schaffer catheter: Code(s): Z97.8 - Presence of other specified devices Status: Acute Assessment and Plan: Schaffer catheter was exchanged on admission 08/16/2023. (11) Chronic anticoagulation: Code(s): Z79.01 - long-term (current) use of anticoagulants Status: Acute Assessment and Plan: Hold apixaban (12) MATT (acute kidney injury): Code(s): N17.9 - Acute kidney failure, un
--- NOTE | 2023-08-19 10:30 | PM.PNCARD ---
Progress Note: A&P Assessment and Plan (1) Septic shock: Code(s): A41.9 - Sepsis, unspecified organism; R65.21 - Severe sepsis with septic shock Status: Acute Assessment and Plan: / blood culture bottles are growing Streptococcus pneumoniae. Being treated for pneumonia and UTI. Probable component of cardiogenic shock as well since LVEF <15% and he is volume overloaded on exam. He is on 2 pressors currently. Given worsening renal function, likely would neeed CRRT for volume removal, however, family does not wish for patient to be on CRRT or dialysis. Continue treatment as per ICU team. (2) Atrial fibrillation with rapid ventricular response: Code(s): I48.91 - Unspecified atrial fibrillation Status: Acute Assessment and Plan: In setting of shock. Heart rates remain uncontrolled. Continue Amiodarone drip. Will give one time dose of Digoxin. Eliquis is currently on hold due to bloody suction from ETT and black output from NG tube. Resume Eliquis when appropriate. (3) Acute respiratory failure: Code(s): J96.00 - Acute respiratory failure, unspecified whether with hypoxia or hypercapnia Status: Acute Assessment and Plan: Intubated, on mechanical ventilation. Management as per ICU team. (4) Pneumonia: Code(s): J18.9 - Pneumonia, unspecified organism Status: Acute Assessment and Plan: On antibiotics as per ICU team. (5) Urinary tract infection: Code(s): N39.0 - Urinary tract infection, site not specified Status: Acute Assessment and Plan: On antibiotics as per ICU team. (6) Congestive heart failure: Code(s): I50.9 - Heart failure, unspecified Status: Acute Assessment and Plan: Known history of heart failure with reduced ejection fraction, last LVEF was 35-40%. LVEF this admission <15%. In setting of septic shock, probable component of cardiogenic as well. Home heart failure GDMT is on hold due to pressor requirement. Will eventually restart GDMT when no longer requiring pressors. He is volume overloaded, however, his SCr of 5.6 will make it difficult to diurese. Can try IV Lasix as tolerated by hemodynamics. Family has decided that they do not want CRRT (if they did decide to do CRRT, he would need to be transferred to a tertiary center as we do not have CRRT capabilities here). (7) MATT (acute kidney injury): Code(s): N17.9 - Acute kidney failure, unspecified Status: Acute Assessment and Plan: Renal function is worsening. SCr now up to 5.6. BUN 60. Nephrology has been consulted. Plan Recommendations and plan discussed with Traveling Missionary. Subjective Date/time seen: 08/19/23 10:30 Interval history: Reason for visit: Congestive heart failure, shock HPI: We are consulted for congestive heart failure. This is an 82 year old male with known heart failure with reduced ejection fraction, chronic persistent atrial fibrillation. His primary doll surgeon is Dr. Camargo at [facility]. Patient is currently intubated, therefore, unable to obtain any history from the patient. History obtained from the medical chart, patient's medical team and the family at bedside. Patient initially presented to [place] [facility] for lethargy. He was found to be hypoxic, in respiratory distress, in AFIB with RVR. WBC 16.4. Lactate of 4.9. UA concerning for UTI. CT showed right lower lobe pneumonia. Patient was intubated and ended up requiring multiple pressors for shock. Echocardiogram this admission shows moderate enlargement of LV, LVEF <15%, mild tricuspid regurgitation, small pericardial effusion. Review of Dr. Camargo's records show that his LVEF previously was 35-40%. Date of service 08/19: Patient remains intubated. Renal function is worsening. Now on 2 pressors - Levophed and Vasopressin. Remains in atrial fibrillation with higher heart rates today - remains on Amiodarone drip. Family at bedside. Review of Systems Review of Systems:
[2023-08-19] MEDS: DIGOXIN INJ 250 MCG/ML 2 ML AMP (*BKC) IV PUSH (10:58)
--- NOTE | 2023-08-19 11:33 | PM.PNNEP ---
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 support follow repeat labs and UOP (2) Septic shock: Code(s): A41.9 - Sepsis, unspecified organism; R65.21 - Severe sepsis with septic shock Status: Acute Assessment and Plan: presumably secondary to urinary tract infection and pneumonia although the possibility of cholecystitis exists as well imaging to date noted follow culture data positive blood cultures noted s/p aggressive IVF resuscitation -- now with volume overload was on 4 vasopressors - weaned down to 2 continue broad spectrum antibiotics (3) Acute respiratory failure: Code(s): J96.00 - Acute respiratory failure, unspecified whether with hypoxia or hypercapnia Status: Acute Assessment and Plan: due to pneumonia and septic shock along with possible volume overload intubated and on mechanical ventilation ventilator weaning when more stable (4) Congestive heart failure: Code(s): I50.9 - Heart failure, unspecified Status: Acute Assessment and Plan: Echo with EF <15%. therapy for this issues llimited by septic shock Cardiology consulted for further recommendations (5) Atrial fibrillation with rapid ventricular response: Code(s): I48.91 - Unspecified atrial fibrillation Status: Acute Assessment and Plan: known history of chronic afib on amiodarone gtt off anticoagulation due to bloody suction from ETT and dark NG output (6) Metabolic acidosis: Code(s): E87.20 - Acidosis, unspecified Status: Acute Assessment and Plan: due to lactic acidosis from sepsis in addition to acidosis from MATT/ARF sodiuim bicarb per tube follow CO2 levels (7) Pneumonia: Code(s): J18.9 - Pneumonia, unspecified organism Status: Acute Assessment and Plan: CT of the abdomen/pelvis showed severe patchy right lower lobe consolidation consistent with pneumonia. follow culture data on antibiotics continue bronchodilators (8) Urinary tract infection: Code(s): N39.0 - Urinary tract infection, site not specified Status: Acute Assessment and Plan: admission UA suggestive however, does have chronic parson catheter... follow culture data on antibiotics (9) Type 2 diabetes mellitus: Code(s): E11.9 - Type 2 diabetes mellitus without complications Status: Acute Assessment and Plan: follow accu-cheks glycemic control per hospitalist/curber Will continue to follow. Subjective Date/time seen: 08/19/23 11:33 Interval history: Follow-up for acute kidney injury/acute renal failure. Renal function continues to deteriorate in association with diminishing urine output; remains intubated/sedated and on mechanical ventilation; still requiring levophed and vasopressin support to maintain MAP/blood pressure/hemodynamics; febrile overnight as well; family still unsure about whether the want to pursue dialysis as a treatment option -- family meeting planned early this afternoon. Exam Narrative: General: elderly but WD/WN male intubated/sedated and on mechanical ventilation Heart: normal S1 and S2; no rub Lungs: coarse breath sounds Abdomen: soft, nontender, nondistended, positive bowel sounds Extremities: no cyanosis or clubbing; trace edema Skin: warm and dry Objective Data Vi
--- NOTE | 2023-08-19 11:33 | P.PNNP_ITS ---
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/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 support * follow repeat labs and UOP (2) Septic shock: Code(s): A41.9 - Sepsis, unspecified organism; R65.21 - Severe sepsis with septic shock Status: Acute Assessment and Plan: * presumably secondary to urinary tract infection and pneumonia although the possibility of cholecystitis exists as well * imaging to date noted * follow culture data * positive blood cultures noted * s/p aggressive IVF resuscitation -- now with volume overload * was on 4 vasopressors - weaned down to 2 * continue broad spectrum antibiotics (3) Acute respiratory failure: Code(s): J96.00 - Acute respiratory failure, unspecified whether with hypoxia or hypercapnia Status: Acute Assessment and Plan: * due to pneumonia and septic shock along with possible volume overload * intubated and on mechanical ventilation * ventilator weaning when more stable (4) Congestive heart failure: Code(s): I50.9 - Heart failure, unspecified Status: Acute Assessment and Plan: * Echo with EF <15%. * therapy for this issues llimited by septic shock * Cardiology consulted for further recommendations (5) Atrial fibrillation with rapid ventricular response: Code(s): I48.91 - Unspecified atrial fibrillation Status: Acute Assessment and Plan: * known history of chronic afib * on amiodarone gtt * off anticoagulation due to bloody suction from ETT and dark NG output (6) Metabolic acidosis: Code(s): E87.20 - Acidosis, unspecified Status: Acute Assessment and Plan: * due to lactic acidosis from sepsis in addition to acidosis from MATT/ARF * sodiuim bicarb per tube * follow CO2 levels (7) Pneumonia: Code(s): J18.9 - Pneumonia, unspecified organism Status: Acute Assessment and Plan: * CT of the abdomen/pelvis showed severe patchy right lower lobe consolidation consistent with pneumonia. * follow culture data * on antibiotics * continue bronchodilators (8) Urinary tract infection: Code(s): N39.0 - Urinary tract infection, site not specified Status: Acute Assessment and Plan: * admission UA suggestive * however, does have chronic parson catheter... * follow culture data * on antibiotics (9) Type 2 diabetes mellitus: Code(s): E11.9 - Type 2 diabetes mellitus without complications Status: Acute Assessment and Plan: * follow accu-cheks * glycemic control per hospitalist/animal therapist Will continue to follow. Subjective Date/time seen: 08/19/23 11:33 Interval history: Follow-up for acute kidney injury/acute renal failure. Renal function continues to deteriorate in association with diminishing urine output; remains intubated/sedated and on mechanical ventilation; still requiring levophed and vasopressin support to maintain MAP/blood pressure/hemodynamics;
[2023-08-19 11:35] LABS: Glucose Point of Care 187 mg/dl (65-105)
[2023-08-19] MEDS: NOREPINEPHRINE 8 MG/D5W 250 ML 8 MG/250 ML BAG 16.88 MG IV CONT (12:36)
--- NOTE | 2023-08-19 12:52 | P.PNCROSS_ITS ---
Event Note Event Note Event Note: I had another meeting with patient's and patient's daughter who arrived [facility]. They had already met with Dr. Razo from Cardiology. The family has decided, in accordance with pt's wishes, to discontinue all medical therapy and institute comfort measures only. They do not want to proceed with dialysis and do not want to continue with further aggressive life support. They feel the patient would not want to continue like this. I have explained to them that I will use opioids, anxiolytics and other agents on as needed basis to promote comfort and discontinue all medical therapy, lab testing and invasive monitoring. Patient will be palliative extubated and eventually . They verbalized understanding and are waiting for other family members to arrive to visit patient and once they are ready they will proceed with palliative extubation and comfort care. I have discussed with nephrology and cardiology. I requested nurse to notify primary internal medicine physician
[2023-08-19] MEDS: LORazepam INJ (*CRX) 2 MG/ML VIAL IV PUSH ×2 (16:12→17:17)
[2023-08-19] MEDS: MORPHINE SULFATE INJ (*CRX) 10 MG/ML AMP 5 MG IV PUSH (16:12)
[2023-08-19] MEDS: MORPHINE SULFATE (*CRX) 2 MG/ML INJ 4 MG IV PUSH (17:18)
--- NOTE | 2023-08-19 17:36 | PM.DDS ---
Discharge Summary Date and Time Date of : 08/19/23 Time of : 17:22 Provider Pronounced By: Beside RNs Probable Cause of Probable Cause of : Sepsis with shock Summary Hospital Course: Chief Complaint: Lethargic. Narrative: This is an 82-year-old male with chronic atrial fibrillation on anticoagulation, hypertension, type 2 diabetes mellitus, untreated sleep apnea, benign prostatic hyperplasia, and chronic urinary retention with indwelling Schaffer catheter who presented to the emergency department via EMS from home for evaluation of lethargy. The patient provides limited history as he is currently on BiPAP; his provides the majority of the following. He has never been seen before this facility and gets most of his care at [facility]. He seemed to be doing okay over the weekend however mentioned to his several times that he had a mild stomach ache after eating on several occasions. She also noticed that his urine seemed to be more cloudy and darker than usual but that cleared up yesterday. To her knowledge he has not had fever, epigastric pain, back pain, bloating, belching, vomiting, or diarrhea. She denies that he has issues with dysphagia and has no concerns for aspiration. No reports of sick contacts. This morning he woke her from sleep at about 04:30. He did not speak but indicated to her that he was not feeling well and he nodded yes when asked if he needed to go to the hospital. In the ED: He was afebrile on arrival. Blood pressure was 142/95. He was in rapid atrial fibrillation on arrival with rates in the 130s to 140s and he was started on a diltiazem drip. Rates improved for brief period of time however the drip was discontinued due to the development of hypotension. SpO2 was as low as 78% on room air and he was placed on BiPAP due to work of breathing. WBC count of 16.4, hemoglobin 18.9, platelet 128, INR 1.9, BUN 16, creatinine 1.10, Lactic acid 4.9, CRP 3.4. Urine was positive for 2+ leukocyte esterase, greater than 100 RBC and WBC, and 4+ bacteria. He tested negative for influenza, RSV, and COVID. Chest x-ray showed cardiomegaly with clear lungs. CT of the abdomen and pelvis showed right lower lobe pneumonia, mild gallbladder wall thickening, bilateral nonobstructive nephrolithiasis, approximately 4.8 x 5.7 mm calculus within the urinary bladder. He received 3 L crystalloids with improvement in his lactic acid level. Blood and urine cultures were obtained. He was admitted to the ICU for further treatment and evaluation. Blood pressures have continued to decline despite cessation of the diltiazem drip. Blood pressure was 77/58 on arrival to the ICU and a central line was inserted and he has been started on vasopressors. Heart rate is started to slow down and rates are now in the 90s. He remains tachypneic in the upper 20s to low 30s but seems to be tolerating BiPAP much better than he was when I 1st saw him. Initial ABG showed a pH of 7.345, pCO2 25.3, PO2 58.3, HC03 13.5, reduce hemoglobin 9.6. Patient indicates that he is feeling a little bit better at this time. He denies fever, chest pain, pleuritic pain, palpitations, epigastric pain, abdominal pain, and low back pain. A couple of hours after arrival to the ICU he at increasing oxygen requirements and was increasingly tachypneic. He indicated that he was tired and after discussing intubation, he and his gave verbal consent. As the evening progressed his atrial fibrillation became more difficult to control and he was started on an amiodarone drip. He has had increasing vasopressor requirements and is currently on norepinephrine, vasopressin, and phenylephrine. Assessment and Plan (1) Septic shock; Streptococcus Pneumoniae Septic shock secondary to urinary tract infection and pneumonia. Ultrasound right upper quadrant abdomen pending Urine culture sputum cultures pending Blood cultures growing Gram-positive cocci in chains ?W
[2023-08-19 18:07] LABS: Hepatitis B Surface Antigen Negative (Negative)
[2023-08-19 18:24] LABS: Hepatitis B Surface Anti Res Negative
[2023-08-19 21:33] LABS: Hepatitis B Surface Antibody 0.08 s/c
[2023-08-20 02:06] LABS: Pneumococcal Antigen Urine Detected (Not Detected)
[2023-08-23 05:22] LABS: Legionella pneumophila Ag Ur Not Detected (Not Detected)
== END 2023-08-19 17:22 | disposition expired | DRG 871 ==
LOC: ANHED 08:47 → ANHICU 15:31
PROVIDERS: Internal Medicine; Internal Medicine Nephrology; Physician Assistant; Admitting Provider Internal Medicine; Emergency Provider Emergency Medicine; Visit Provider Internal Medicine
DX: A40.3 Sepsis due to Streptococcus pneumoniae (principal); I50.23 Acute on chronic systolic (congestive) heart failure; R65.21 Severe sepsis with septic shock; J96.01 Acute respiratory failure with hypoxia; J13 Pneumonia due to Streptococcus pneumoniae; N17.0 Acute kidney failure with tubular necrosis; R65.20 Severe sepsis without septic shock; T83.511A Infection and inflammatory reaction due to indwelling urethral catheter, initial encounter; N39.0 Urinary tract infection, site not specified; I13.0 Hypertensive heart and chronic kidney disease with heart failure and stage 1 through stage 4 chronic kidney disease, or unspecified chronic kidney disease; I48.19 Other persistent atrial fibrillation; K92.2 Gastrointestinal hemorrhage, unspecified; N40.1 Benign prostatic hyperplasia with lower urinary tract symptoms; R33.8 Other retention of urine; Z20.822 Contact with and (suspected) exposure to COVID-19; G47.33 Obstructive sleep apnea (adult) (pediatric); E11.21 Type 2 diabetes mellitus with diabetic nephropathy; N20.0 Calculus of kidney; N21.0 Calculus in bladder; N18.9 Chronic kidney disease, unspecified; E11.22 Type 2 diabetes mellitus with diabetic chronic kidney disease; Z79.01 Long term (current) use of anticoagulants; Z79.85 Long-term (current) use of injectable non-insulin antidiabetic drugs
CPT/HCPCS: 36415; 36600; 71045; 74177; 76705; 80048; 80053; 80202; 81001; 82010; 82375; 82550; 82805; 82948; 83036; 83050; 83605; 83735; 83880; 84145; 84439; 84443; 84480; 84484; 85025; 85027; 85055; 85610; 85730; 86140; 86706; 86738; 87040; 87070; 87086; 87181; 87205; 87340; 87449; 87637; 87641; 87899; 93005; 93306; 94002; 94003; 96365; 96366; 96368; 96375; 99291; A9270; C9113; G0378; J0171; J0282; J0330; J0456; J0613; J0692; J0696; J1160; J1650; J1720; J1815; J1836; J2060; J2250; J2270; J2371; J3010; J3370; J3475; J7030; J7060; J7120; P9047; Q9957; Q9967